=== PATIENT | male | born 1965 | race Caucasian/White ===

== ENCOUNTER 2022-05-18 10:03 | Inpatient (IN) | payer OTHER ==
[2022-05-18 11:58] VITALS: BMI 24.5
[2022-05-18] MEDS ORDERED: BENZOCAINE/MENTHOL (CHLORASEPTIC ) LOZENGE MM PRN (13:17)
[2022-05-18] MEDS ORDERED: ACETAMINOPHEN 325 MG TABLET (FP) PO PRN ×2 (13:17)
[2022-05-18] MEDS ORDERED: DICYCLOMINE HCL 10 MG CAPSULE PO PRN (13:17)
[2022-05-18] MEDS ORDERED: MAGNESIUM CITRATE 300 ML BOTTLE PO PRN (13:17)
[2022-05-18] MEDS ORDERED: NICOTINE 10 MG CARTRIDGE (INHALER) IH PRN (13:17)
[2022-05-18] MEDS ORDERED: IBUPROFEN 600 MG TABLET (FP) PO PRN (13:17)
[2022-05-18] MEDS ORDERED: MAG HYDROX/AL HYDROX/SIMETH 30 ML UNIT-DOSE CUP PO PRN (13:17)
[2022-05-18] MEDS ORDERED: METHOCARBAMOL 500 MG TABLET PO PRN (13:17)
[2022-05-18] MEDS ORDERED: chlordiazePOXIDE HCL 25 MG CAPSULE PO PRN (13:17)
[2022-05-18] MEDS ORDERED: BISMUTH SUBSALICYLATE 524 MG/30 ML PO PRN (13:17)
[2022-05-18] MEDS ORDERED: ONDANSETRON *ODT* 4 MG TABLET SL PRN (13:17)
[2022-05-18] MEDS ORDERED: NICOTINE POLACRILEX 2 MG GUM BUC PRN (13:17)
[2022-05-18] MEDS ORDERED: IBUPROFEN 400 MG TABLET (FP) PO PRN (13:17)
[2022-05-18] MEDS ORDERED: MAGNESIUM HYDROX 2400MG/30ML ORAL SUSPENSION 30 ML CUP PO PRN (13:17)
[2022-05-18] MEDS ORDERED: LOPERAMIDE HCL 2 MG CAPSULE PO PRN (13:17)
[2022-05-18] MEDS: hydrOXYzine PAMOATE 25 MG CAPSULE (FP) PO SCH ×3 (14:00→22:31)
[2022-05-18] MEDS: PRENATAL VITAMINS W/ FOLIC ACID TABLET (FP) PO SCH (14:00)
[2022-05-18] MEDS: chlordiazePOXIDE HCL 25 MG CAPSULE PO SCH ×2 (19:24→22:32)
[2022-05-18] MEDS: MELATONIN 5 MG TABLETS PO SCH (22:31)
[2022-05-18] MEDS: THIAMINE HCL 100 MG TABLET (FP) PO SCH (22:32)
[2022-05-19] MEDS: chlordiazePOXIDE HCL 25 MG CAPSULE PO SCH ×4 (06:03→22:15)
[2022-05-19] MEDS: hydrOXYzine PAMOATE 25 MG CAPSULE (FP) PO SCH ×5 (06:03→22:15)
[2022-05-19] MEDS ORDERED: methaDONE HCL 40 MG DISPERSABLE TABLET PO SCH (10:00)
[2022-05-19 10:19] LABS: HEMOGLOBIN 12.3 GM/dL (11.7-16.9); MCH 32.1 pg (25.7-33.7); MCHC 34.3 g/dl (32.0-35.9); MEAN CELL VOLUME 93.8 fl (80-96); MEAN PLT VOLUME 8.9 fl (7.5-11.1); PLATELET COUNT 227 10^3/uL (134-434); RBC 3.84 M/mm3 (4.00-5.60); RDW 13.7 % (11.9-15.9); WHITE BLOOD COUNT 9.1 K/mm3 (4.0-10.0)
[2022-05-19 10:25] LABS: ALBUMIN 3.5 g/dl (3.4-5.0)
[2022-05-19] MEDS: PRENATAL VITAMINS W/ FOLIC ACID TABLET (FP) PO SCH (10:25)
[2022-05-19 10:26] LABS: BLOOD UREA NITROGEN 23.2 mg/dL (7-18)
[2022-05-19 10:29] LABS: CREATININE 0.8 mg/dL (0.55-1.3)
[2022-05-19 10:30] LABS: BILIRUBIN,TOTAL 0.4 mg/dL (0.2-1)
[2022-05-19 10:31] LABS: TOT PROT 6.6 g/dl (6.4-8.2)
[2022-05-19] MEDS: THIAMINE HCL 100 MG TABLET (FP) PO SCH (22:15)
[2022-05-19] MEDS: MELATONIN 5 MG TABLETS PO SCH (22:15)
[2022-05-20] MEDS: chlordiazePOXIDE HCL 25 MG CAPSULE PO SCH ×4 (05:46→22:45)
[2022-05-20] MEDS: hydrOXYzine PAMOATE 25 MG CAPSULE (FP) PO SCH ×5 (05:46→22:46)
[2022-05-20] MEDS: PRENATAL VITAMINS W/ FOLIC ACID TABLET (FP) PO SCH (10:26)
[2022-05-20] MEDS: THIAMINE HCL 100 MG TABLET (FP) PO SCH (22:46)
[2022-05-20] MEDS: MELATONIN 5 MG TABLETS PO SCH (22:46)
[2022-05-21] MEDS ORDERED: chlordiazePOXIDE HCL 10 MG CAPSULE PO PRN
[2022-05-21] MEDS: chlordiazePOXIDE HCL 10 MG CAPSULE PO SCH ×4 (05:35→22:24)
[2022-05-21] MEDS: hydrOXYzine PAMOATE 25 MG CAPSULE (FP) PO SCH ×5 (05:35→22:25)
[2022-05-21] MEDS: PRENATAL VITAMINS W/ FOLIC ACID TABLET (FP) PO SCH (10:40)
[2022-05-21 18:35] VITALS: RESP 18
[2022-05-21] MEDS: THIAMINE HCL 100 MG TABLET (FP) PO SCH (22:25)
[2022-05-21] MEDS: MELATONIN 5 MG TABLETS PO SCH (22:26)
[2022-05-22] MEDS: chlordiazePOXIDE HCL 10 MG CAPSULE PO SCH ×2 (06:13→17:45)
[2022-05-22] MEDS: hydrOXYzine PAMOATE 25 MG CAPSULE (FP) PO SCH ×5 (06:16→22:32)
[2022-05-22] MEDS: PRENATAL VITAMINS W/ FOLIC ACID TABLET (FP) PO SCH (10:25)
[2022-05-22] MEDS: MELATONIN 5 MG TABLETS PO SCH (22:31)
[2022-05-22] MEDS: THIAMINE HCL 100 MG TABLET (FP) PO SCH (22:32)
[2022-05-23] MEDS ORDERED: chlordiazePOXIDE HCL 10 MG CAPSULE PO ONE (05:00)
[2022-05-23] MEDS: hydrOXYzine PAMOATE 25 MG CAPSULE (FP) PO SCH ×2 (05:18→10:25)
[2022-05-23 09:06] VITALS: BP 102/57; PULSE 74; TEMP 98
[2022-05-23] MEDS: PRENATAL VITAMINS W/ FOLIC ACID TABLET (FP) PO SCH (10:26)
== END 2022-05-23 12:46 | disposition other institution (70) | DRG 773 ==
LOC: YASAS 10:03 → Y3N 13:06
PROVIDERS: ADMIT Allergy & Immunology; ATTEND Surgery
PROC: HZ2ZZZZ Detoxification Services for Substance Abuse Treatment (ICD-10-PCS; principal; 2022-05-18)
DX: F11.23 Opioid dependence with withdrawal (principal); F10.230 Alcohol dependence with withdrawal, uncomplicated; F14.10 Cocaine abuse, uncomplicated; F17.210 Nicotine dependence, cigarettes, uncomplicated; R79.89 Other specified abnormal findings of blood chemistry; Z86.59 Personal history of other mental and behavioral disorders; Z28.310 Unvaccinated for COVID-19; Z28.21 Immunization not carried out because of patient refusal; Z56.0 Unemployment, unspecified; Z59.00 Homelessness unspecified
CPT/HCPCS: 36415; 80053; 85027; 86780; 87811; C9803-CS; U0003; U0005

== ENCOUNTER 2022-05-23 12:50 | Inpatient (IN) | payer OTHER ==
[2022-05-23] MEDS ORDERED: ACETAMINOPHEN 325 MG TABLET (FP) PO PRN (15:24)
[2022-05-23] MEDS ORDERED: P-EPHED 60MG/TRIPROLIDI 2.5MG TABLET PO PRN (15:24)
[2022-05-23] MEDS ORDERED: MAG HYDROX/AL HYDROX/SIMETH 30 ML UNIT-DOSE CUP PO PRN (15:24)
[2022-05-23] MEDS ORDERED: MAGNESIUM HYDROX 2400MG/30ML ORAL SUSPENSION 30 ML CUP PO PRN (15:24)
[2022-05-23] MEDS ORDERED: guaiFENesin 200 MG/10 ML 10 ML UNIT-DOSE CUPS PO PRN (15:24)
[2022-05-23] MEDS ORDERED: MAGNESIUM CITRATE 300 ML BOTTLE PO PRN (15:24)
[2022-05-23] MEDS ORDERED: IBUPROFEN 400 MG TABLET (FP) PO PRN (15:24)
[2022-05-23] MEDS ORDERED: BENZOCAINE/MENTHOL (CHLORASEPTIC ) LOZENGE MM PRN (15:24)
[2022-05-23] MEDS: MELATONIN 5 MG TABLETS PO SCH (21:11)
[2022-05-23] MEDS: THIAMINE HCL 100 MG TABLET (FP) PO SCH (21:11)
[2022-05-24] MEDS ORDERED: methaDONE HCL 40 MG DISPERSABLE TABLET PO SCH (06:00)
[2022-05-24] MEDS: hydrOXYzine PAMOATE 25 MG CAPSULE (FP) PO PRN ×3 (06:22→21:21)
[2022-05-24] MEDS: NICOTINE 7 MG/24 HOURS TOPICAL PATCH TD SCH (10:10)
[2022-05-24] MEDS: PRENATAL VITAMINS W/ FOLIC ACID TABLET (FP) PO SCH (10:10)
[2022-05-24 13:14] LABS: ALBUMIN 3.5 g/dl (3.4-5.0); BLOOD UREA NITROGEN 21.3 mg/dL (7-18); CALCIUM 9.3 mg/dL (8.5-10.1)
[2022-05-24 13:17] LABS: CREATININE 0.8 mg/dL (0.55-1.3)
[2022-05-24 13:19] LABS: BILIRUBIN,TOTAL 0.2 mg/dL (0.2-1); TOT PROT 6.9 g/dl (6.4-8.2)
[2022-05-24 14:12] LABS: HIV INTERPRETATION NEGATIVE (NEGATIVE)
[2022-05-24] MEDS: THIAMINE HCL 100 MG TABLET (FP) PO SCH (21:21)
[2022-05-24] MEDS: MELATONIN 5 MG TABLETS PO SCH (21:21)
[2022-05-25] MEDS: hydrOXYzine PAMOATE 25 MG CAPSULE (FP) PO PRN ×2 (06:35→21:39)
[2022-05-25] MEDS: NICOTINE 7 MG/24 HOURS TOPICAL PATCH TD SCH (10:42)
[2022-05-25] MEDS: PRENATAL VITAMINS W/ FOLIC ACID TABLET (FP) PO SCH (10:42)
[2022-05-25] MEDS: THIAMINE HCL 100 MG TABLET (FP) PO SCH (21:38)
[2022-05-25] MEDS: MELATONIN 5 MG TABLETS PO SCH (21:38)
[2022-05-26] MEDS: hydrOXYzine PAMOATE 25 MG CAPSULE (FP) PO PRN ×3 (06:09→21:49)
[2022-05-26] MEDS: NICOTINE 7 MG/24 HOURS TOPICAL PATCH TD SCH (09:46)
[2022-05-26] MEDS: PRENATAL VITAMINS W/ FOLIC ACID TABLET (FP) PO SCH (09:46)
[2022-05-26] MEDS: MELATONIN 5 MG TABLETS PO SCH (21:48)
[2022-05-26] MEDS: THIAMINE HCL 100 MG TABLET (FP) PO SCH (21:48)
[2022-05-27] MEDS: hydrOXYzine PAMOATE 25 MG CAPSULE (FP) PO PRN ×3 (06:48→21:40)
[2022-05-27] MEDS: PRENATAL VITAMINS W/ FOLIC ACID TABLET (FP) PO SCH (09:57)
[2022-05-27] MEDS: LOPERAMIDE HCL 2 MG CAPSULE PO PRN (09:59)
[2022-05-27] MEDS: NICOTINE 7 MG/24 HOURS TOPICAL PATCH TD SCH (12:29)
[2022-05-27] MEDS: THIAMINE HCL 100 MG TABLET (FP) PO SCH (21:39)
[2022-05-27] MEDS: MELATONIN 5 MG TABLETS PO SCH (21:39)
[2022-05-28] MEDS: LOPERAMIDE HCL 2 MG CAPSULE PO PRN (06:49)
[2022-05-28] MEDS: hydrOXYzine PAMOATE 25 MG CAPSULE (FP) PO PRN ×3 (06:50→21:30)
[2022-05-28] MEDS: PRENATAL VITAMINS W/ FOLIC ACID TABLET (FP) PO SCH (10:41)
[2022-05-28] MEDS: NICOTINE 7 MG/24 HOURS TOPICAL PATCH TD SCH (10:41)
[2022-05-28] MEDS: THIAMINE HCL 100 MG TABLET (FP) PO SCH (21:28)
[2022-05-28] MEDS: MELATONIN 5 MG TABLETS PO SCH (21:29)
[2022-05-29] MEDS: hydrOXYzine PAMOATE 25 MG CAPSULE (FP) PO PRN ×3 (06:33→21:37)
[2022-05-29] MEDS: PRENATAL VITAMINS W/ FOLIC ACID TABLET (FP) PO SCH (10:18)
[2022-05-29] MEDS: NICOTINE 7 MG/24 HOURS TOPICAL PATCH TD SCH (10:18)
[2022-05-29] MEDS: NICOTINE 10 MG CARTRIDGE (INHALER) IH PRN (10:19)
[2022-05-29] MEDS: MELATONIN 5 MG TABLETS PO SCH (21:37)
[2022-05-29] MEDS: THIAMINE HCL 100 MG TABLET (FP) PO SCH (21:37)
[2022-05-30 07:07] VITALS: RESP 18
[2022-05-30] MEDS: hydrOXYzine PAMOATE 25 MG CAPSULE (FP) PO PRN ×2 (10:10→21:53)
[2022-05-30] MEDS: NICOTINE 7 MG/24 HOURS TOPICAL PATCH TD SCH (10:10)
[2022-05-30] MEDS: PRENATAL VITAMINS W/ FOLIC ACID TABLET (FP) PO SCH (10:10)
[2022-05-30] MEDS: THIAMINE HCL 100 MG TABLET (FP) PO SCH (21:52)
[2022-05-30] MEDS: MELATONIN 5 MG TABLETS PO SCH (21:53)
[2022-05-31] MEDS: hydrOXYzine PAMOATE 25 MG CAPSULE (FP) PO PRN ×2 (06:10→21:34)
[2022-05-31] MEDS: NICOTINE 7 MG/24 HOURS TOPICAL PATCH TD SCH (10:43)
[2022-05-31] MEDS: PRENATAL VITAMINS W/ FOLIC ACID TABLET (FP) PO SCH (10:44)
[2022-05-31] MEDS: THIAMINE HCL 100 MG TABLET (FP) PO SCH (21:34)
[2022-05-31] MEDS: QUEtiapine FUMARATE 50 MG TABLET PO SCH (21:34)
[2022-05-31] MEDS: MELATONIN 5 MG TABLETS PO SCH (21:34)
[2022-06-01] MEDS: hydrOXYzine PAMOATE 25 MG CAPSULE (FP) PO PRN (06:53)
[2022-06-01] MEDS: NICOTINE 7 MG/24 HOURS TOPICAL PATCH TD SCH (10:17)
[2022-06-01] MEDS: PRENATAL VITAMINS W/ FOLIC ACID TABLET (FP) PO SCH (10:18)
[2022-06-01] MEDS: MELATONIN 5 MG TABLETS PO SCH (21:12)
[2022-06-01] MEDS: QUEtiapine FUMARATE 50 MG TABLET PO SCH (21:12)
[2022-06-01] MEDS: NICOTINE 10 MG CARTRIDGE (INHALER) IH PRN (21:12)
[2022-06-01] MEDS: THIAMINE HCL 100 MG TABLET (FP) PO SCH (21:12)
[2022-06-02] MEDS: NICOTINE 7 MG/24 HOURS TOPICAL PATCH TD SCH (09:48)
[2022-06-02] MEDS: PRENATAL VITAMINS W/ FOLIC ACID TABLET (FP) PO SCH (09:48)
[2022-06-02] MEDS: hydrOXYzine PAMOATE 25 MG CAPSULE (FP) PO PRN (09:49)
[2022-06-02] MEDS: QUEtiapine FUMARATE 50 MG TABLET PO SCH (21:21)
[2022-06-02] MEDS: THIAMINE HCL 100 MG TABLET (FP) PO SCH (21:21)
[2022-06-02] MEDS: MELATONIN 5 MG TABLETS PO SCH (21:22)
[2022-06-03] MEDS: PRENATAL VITAMINS W/ FOLIC ACID TABLET (FP) PO SCH (10:54)
[2022-06-03] MEDS: NICOTINE 7 MG/24 HOURS TOPICAL PATCH TD SCH (10:54)
[2022-06-03] MEDS: THIAMINE HCL 100 MG TABLET (FP) PO SCH (21:14)
[2022-06-03] MEDS: MELATONIN 5 MG TABLETS PO SCH (21:14)
[2022-06-03] MEDS: QUEtiapine FUMARATE 100 MG TABLET (FP) PO SCH (21:15)
[2022-06-04] MEDS: hydrOXYzine PAMOATE 25 MG CAPSULE (FP) PO PRN ×3 (06:23→21:31)
[2022-06-04] MEDS: PRENATAL VITAMINS W/ FOLIC ACID TABLET (FP) PO SCH (10:27)
[2022-06-04] MEDS: NICOTINE 7 MG/24 HOURS TOPICAL PATCH TD SCH (10:29)
[2022-06-04] MEDS: THIAMINE HCL 100 MG TABLET (FP) PO SCH (21:30)
[2022-06-04] MEDS: MELATONIN 5 MG TABLETS PO SCH (21:30)
[2022-06-04] MEDS: QUEtiapine FUMARATE 100 MG TABLET (FP) PO SCH (21:31)
[2022-06-05] MEDS: hydrOXYzine PAMOATE 25 MG CAPSULE (FP) PO PRN ×2 (06:32→21:25)
[2022-06-05] MEDS: NICOTINE 7 MG/24 HOURS TOPICAL PATCH TD SCH (09:52)
[2022-06-05] MEDS: PRENATAL VITAMINS W/ FOLIC ACID TABLET (FP) PO SCH (09:52)
[2022-06-05] MEDS: MELATONIN 5 MG TABLETS PO SCH (21:25)
[2022-06-05] MEDS: THIAMINE HCL 100 MG TABLET (FP) PO SCH (21:25)
[2022-06-05] MEDS: QUEtiapine FUMARATE 100 MG TABLET (FP) PO SCH (21:26)
[2022-06-06] MEDS: hydrOXYzine PAMOATE 25 MG CAPSULE (FP) PO PRN ×2 (06:16→21:15)
[2022-06-06] MEDS: NICOTINE 7 MG/24 HOURS TOPICAL PATCH TD SCH (10:23)
[2022-06-06] MEDS: PRENATAL VITAMINS W/ FOLIC ACID TABLET (FP) PO SCH (10:23)
[2022-06-06] MEDS: QUEtiapine FUMARATE 100 MG TABLET (FP) PO SCH (21:15)
[2022-06-06] MEDS: MELATONIN 5 MG TABLETS PO SCH (21:15)
[2022-06-06] MEDS: THIAMINE HCL 100 MG TABLET (FP) PO SCH (21:15)
[2022-06-07] MEDS: hydrOXYzine PAMOATE 25 MG CAPSULE (FP) PO PRN ×2 (06:14→21:10)
[2022-06-07] MEDS: NICOTINE 7 MG/24 HOURS TOPICAL PATCH TD SCH (10:24)
[2022-06-07] MEDS: PRENATAL VITAMINS W/ FOLIC ACID TABLET (FP) PO SCH (10:24)
[2022-06-07] MEDS: THIAMINE HCL 100 MG TABLET (FP) PO SCH (21:10)
[2022-06-07] MEDS: QUEtiapine FUMARATE 100 MG TABLET (FP) PO SCH (21:10)
[2022-06-07] MEDS: MELATONIN 5 MG TABLETS PO SCH (21:10)
[2022-06-08] MEDS: hydrOXYzine PAMOATE 25 MG CAPSULE (FP) PO PRN (06:30)
[2022-06-08] MEDS: PRENATAL VITAMINS W/ FOLIC ACID TABLET (FP) PO SCH (10:19)
[2022-06-08] MEDS: NICOTINE 7 MG/24 HOURS TOPICAL PATCH TD SCH (10:19)
[2022-06-08] MEDS: QUEtiapine FUMARATE 100 MG TABLET (FP) PO SCH (21:20)
[2022-06-08] MEDS: THIAMINE HCL 100 MG TABLET (FP) PO SCH (21:20)
[2022-06-08] MEDS: MELATONIN 5 MG TABLETS PO SCH (21:20)
[2022-06-09] MEDS: hydrOXYzine PAMOATE 25 MG CAPSULE (FP) PO PRN (06:32)
[2022-06-09 07:08] VITALS: BP 131/92; PULSE 68; TEMP 97.8
[2022-06-09] MEDS: PRENATAL VITAMINS W/ FOLIC ACID TABLET (FP) PO SCH (09:45)
[2022-06-09] MEDS: NICOTINE 7 MG/24 HOURS TOPICAL PATCH TD SCH (09:46)
== END 2022-06-09 13:50 | disposition home or self-care (01) | DRG 772 ==
LOC: YASAS 12:50 → Y3W 12:51
PROVIDERS: ADMIT Allergy & Immunology; ATTEND Psychiatry & Neurology Pain Medicine
PROC: HZ42ZZZ Group Counseling for Substance Abuse Treatment, Cognitive-Behavioral (ICD-10-PCS; principal; 2022-05-23)
DX: F10.20 Alcohol dependence, uncomplicated (principal); F11.20 Opioid dependence, uncomplicated; F17.210 Nicotine dependence, cigarettes, uncomplicated; F31.9 Bipolar disorder, unspecified; G47.00 Insomnia, unspecified; Z56.0 Unemployment, unspecified; Z59.00 Homelessness unspecified
CPT/HCPCS: 36415; 80053; 87389

== ENCOUNTER 2022-07-28 11:55 | Inpatient (IN) | payer OTHER ==
[2022-07-28 13:03] VITALS: BMI 27.4
[2022-07-28] MEDS ORDERED: NALOXONE HCL (KLOXXADO) 8 MG SPRAY NS PRN (14:47)
[2022-07-28] MEDS ORDERED: MAG HYDROX/AL HYDROX/SIMETH 30 ML UNIT-DOSE CUP PO PRN (14:47)
[2022-07-28] MEDS ORDERED: BISMUTH SUBSALICYLATE 524 MG/30 ML PO PRN (14:47)
[2022-07-28] MEDS ORDERED: DICYCLOMINE HCL 10 MG CAPSULE PO PRN (14:47)
[2022-07-28] MEDS ORDERED: LOPERAMIDE HCL 2 MG CAPSULE PO PRN (14:47)
[2022-07-28] MEDS ORDERED: IBUPROFEN 600 MG TABLET (FP) PO PRN (14:47)
[2022-07-28] MEDS ORDERED: NICOTINE 10 MG CARTRIDGE (INHALER) IH PRN (14:47)
[2022-07-28] MEDS ORDERED: IBUPROFEN 400 MG TABLET (FP) PO PRN (14:47)
[2022-07-28] MEDS ORDERED: ONDANSETRON *ODT* 4 MG TABLET SL PRN (14:47)
[2022-07-28] MEDS ORDERED: MAGNESIUM HYDROX 2400MG/30ML ORAL SUSPENSION 30 ML CUP PO PRN (14:47)
[2022-07-28] MEDS ORDERED: ACETAMINOPHEN 325 MG TABLET (FP) PO PRN ×2 (14:47)
[2022-07-28] MEDS ORDERED: MAGNESIUM CITRATE 300 ML BOTTLE PO PRN (14:47)
[2022-07-28] MEDS ORDERED: BENZOCAINE/MENTHOL (CHLORASEPTIC ) LOZENGE MM PRN (14:47)
[2022-07-28] MEDS: THIAMINE HCL 100 MG TABLET (FP) PO SCH (22:41)
[2022-07-28] MEDS: MELATONIN 5 MG TABLETS PO SCH (22:41)
[2022-07-28] MEDS: hydrOXYzine PAMOATE 25 MG CAPSULE (FP) PO PRN (22:41)
[2022-07-28] MEDS: METHOCARBAMOL 500 MG TABLET PO PRN (22:41)
[2022-07-29] MEDS ORDERED: methaDONE HCL 10 MG TABLET PO SCH (09:15)
[2022-07-29] MEDS ORDERED: chlordiazePOXIDE HCL 25 MG CAPSULE PO PRN (10:20)
[2022-07-29] MEDS: PRENATAL VITAMINS W/ FOLIC ACID TABLET (FP) PO SCH (10:20)
[2022-07-29] MEDS: METHOCARBAMOL 500 MG TABLET PO PRN (10:21)
[2022-07-29] MEDS: chlordiazePOXIDE HCL 25 MG CAPSULE PO SCH ×3 (10:47→22:09)
[2022-07-29 11:59] LABS: HEMATOCRIT 34.5 % (35.4-49); HEMOGLOBIN 11.7 GM/dL (11.7-16.9); MCHC 33.8 g/dl (32.0-35.9); MEAN CELL VOLUME 91.8 fl (80-96); MEAN PLT VOLUME 8.7 fl (7.5-11.1); PLATELET COUNT 256 10^3/uL (134-434); RBC 3.76 M/mm3 (4.00-5.60); RDW 14.2 % (11.9-15.9); WHITE BLOOD COUNT 6.7 K/mm3 (4.0-10.0)
[2022-07-29 12:16] LABS: ALBUMIN 3.1 g/dl (3.4-5.0); BLOOD UREA NITROGEN 18.9 mg/dL (7-18); CALCIUM 8.6 mg/dL (8.5-10.1)
[2022-07-29 12:20] LABS: CREATININE 0.7 mg/dL (0.55-1.3)
[2022-07-29 12:21] LABS: BILIRUBIN,TOTAL 0.4 mg/dL (0.2-1); TOT PROT 5.9 g/dl (6.4-8.2)
[2022-07-29] MEDS: QUEtiapine FUMARATE 50 MG TABLET PO SCH (22:08)
[2022-07-29] MEDS: THIAMINE HCL 100 MG TABLET (FP) PO SCH (22:08)
[2022-07-29] MEDS: MELATONIN 5 MG TABLETS PO SCH (22:09)
[2022-07-30] MEDS: chlordiazePOXIDE HCL 25 MG CAPSULE PO SCH ×4 (05:10→22:20)
[2022-07-30] MEDS: METHOCARBAMOL 500 MG TABLET PO PRN ×2 (05:18→17:54)
[2022-07-30] MEDS: hydrOXYzine PAMOATE 25 MG CAPSULE (FP) PO PRN ×3 (05:18→22:21)
[2022-07-30] MEDS: PRENATAL VITAMINS W/ FOLIC ACID TABLET (FP) PO SCH (10:39)
[2022-07-30] MEDS: QUEtiapine FUMARATE 50 MG TABLET PO SCH (22:21)
[2022-07-30] MEDS: THIAMINE HCL 100 MG TABLET (FP) PO SCH (22:21)
[2022-07-30] MEDS: MELATONIN 5 MG TABLETS PO SCH (22:22)
[2022-07-31] MEDS: chlordiazePOXIDE HCL 25 MG CAPSULE PO SCH ×4 (05:32→22:48)
[2022-07-31] MEDS: hydrOXYzine PAMOATE 25 MG CAPSULE (FP) PO PRN ×3 (05:33→22:08)
[2022-07-31] MEDS: METHOCARBAMOL 500 MG TABLET PO PRN ×2 (05:34→17:40)
[2022-07-31] MEDS: PRENATAL VITAMINS W/ FOLIC ACID TABLET (FP) PO SCH (10:29)
[2022-07-31] MEDS: QUEtiapine FUMARATE 50 MG TABLET PO SCH (22:07)
[2022-07-31] MEDS: THIAMINE HCL 100 MG TABLET (FP) PO SCH (22:07)
[2022-07-31] MEDS: MELATONIN 5 MG TABLETS PO SCH (22:07)
[2022-08-01] MEDS ORDERED: chlordiazePOXIDE HCL 10 MG CAPSULE PO PRN
[2022-08-01] MEDS: chlordiazePOXIDE HCL 10 MG CAPSULE PO SCH ×4 (05:37→22:17)
[2022-08-01] MEDS: METHOCARBAMOL 500 MG TABLET PO PRN ×2 (05:40→17:56)
[2022-08-01] MEDS: PRENATAL VITAMINS W/ FOLIC ACID TABLET (FP) PO SCH (10:04)
[2022-08-01] MEDS: THIAMINE HCL 100 MG TABLET (FP) PO SCH (22:17)
[2022-08-01] MEDS: QUEtiapine FUMARATE 50 MG TABLET PO SCH (22:17)
[2022-08-01] MEDS: MELATONIN 5 MG TABLETS PO SCH (22:17)
[2022-08-01] MEDS: hydrOXYzine PAMOATE 25 MG CAPSULE (FP) PO PRN (22:18)
[2022-08-02] MEDS: METHOCARBAMOL 500 MG TABLET PO PRN ×3 (05:41→22:11)
[2022-08-02] MEDS: chlordiazePOXIDE HCL 10 MG CAPSULE PO SCH ×2 (05:42→18:25)
[2022-08-02] MEDS: PRENATAL VITAMINS W/ FOLIC ACID TABLET (FP) PO SCH (10:37)
[2022-08-02] MEDS: hydrOXYzine PAMOATE 25 MG CAPSULE (FP) PO PRN (18:27)
[2022-08-02] MEDS: THIAMINE HCL 100 MG TABLET (FP) PO SCH (22:11)
[2022-08-02] MEDS: MELATONIN 5 MG TABLETS PO SCH (22:11)
[2022-08-02] MEDS: QUEtiapine FUMARATE 50 MG TABLET PO SCH (22:11)
[2022-08-03] MEDS ORDERED: chlordiazePOXIDE HCL 10 MG CAPSULE PO ONE (05:00)
[2022-08-03 09:47] VITALS: BP 153/88; PULSE 102; RESP 19; TEMP 97.7
[2022-08-03] MEDS: PRENATAL VITAMINS W/ FOLIC ACID TABLET (FP) PO SCH (10:54)
[2022-08-03] MEDS: hydrOXYzine PAMOATE 25 MG CAPSULE (FP) PO PRN (10:55)
== END 2022-08-03 12:38 | disposition other institution (70) | DRG 773 ==
LOC: YASAS 11:55 → Y3N 15:39
PROVIDERS: ADMIT Allergy & Immunology; ATTEND Surgery
PROC: HZ2ZZZZ Detoxification Services for Substance Abuse Treatment (ICD-10-PCS; principal; 2022-07-28)
DX: F10.230 Alcohol dependence with withdrawal, uncomplicated (principal); F11.20 Opioid dependence, uncomplicated; F14.20 Cocaine dependence, uncomplicated; F17.210 Nicotine dependence, cigarettes, uncomplicated; F31.9 Bipolar disorder, unspecified; E46 Unspecified protein-calorie malnutrition; Z68.27 Body mass index [BMI] 27.0-27.9, adult; G47.00 Insomnia, unspecified; Z28.310 Unvaccinated for COVID-19; Z28.9 Immunization not carried out for unspecified reason; Z56.0 Unemployment, unspecified; Z59.00 Homelessness unspecified
CPT/HCPCS: 36415; 80053; 85027; 86780; 93005; 93010; C9803-CS; U0003; U0005

== ENCOUNTER 2022-09-06 13:44 | Inpatient (IN) | payer OTHER ==
[2022-09-06 14:37] VITALS: BMI 26.4
[2022-09-06] MEDS ORDERED: ACETAMINOPHEN 325 MG TABLET (FP) PO PRN ×2 (15:43)
[2022-09-06] MEDS ORDERED: BENZOCAINE/MENTHOL (CHLORASEPTIC ) LOZENGE MM PRN (15:43)
[2022-09-06] MEDS ORDERED: hydrOXYzine PAMOATE 25 MG CAPSULE (FP) PO PRN (15:43)
[2022-09-06] MEDS ORDERED: DICYCLOMINE HCL 10 MG CAPSULE PO PRN (15:43)
[2022-09-06] MEDS ORDERED: POLYETHYLENE GLYCOL (HEALTHYLAX) 3350 17 GM PACKET PO PRN (15:43)
[2022-09-06] MEDS ORDERED: NALOXONE HCL (KLOXXADO) 8 MG SPRAY NS PRN (15:43)
[2022-09-06] MEDS ORDERED: NICOTINE POLACRILEX 2 MG GUM BUC PRN (15:43)
[2022-09-06] MEDS ORDERED: MAGNESIUM HYDROX 2400MG/30ML ORAL SUSPENSION 30 ML CUP PO PRN (15:43)
[2022-09-06] MEDS ORDERED: MAG HYDROX/AL HYDROX/SIMETH 30 ML UNIT-DOSE CUP PO PRN (15:43)
[2022-09-06] MEDS ORDERED: IBUPROFEN 400 MG TABLET (FP) PO PRN (15:43)
[2022-09-06] MEDS ORDERED: BISMUTH SUBSALICYLATE 524 MG/30 ML PO PRN (15:43)
[2022-09-06] MEDS ORDERED: LOPERAMIDE HCL 2 MG CAPSULE PO PRN (15:43)
[2022-09-06] MEDS: chlordiazePOXIDE HCL 25 MG CAPSULE PO PRN (17:13)
[2022-09-06] MEDS: PRENATAL VITAMINS W/ FOLIC ACID TABLET (FP) PO SCH (17:14)
[2022-09-06] MEDS: THIAMINE HCL 100 MG TABLET (FP) PO SCH (22:29)
[2022-09-06] MEDS: chlordiazePOXIDE HCL 25 MG CAPSULE PO SCH (22:29)
[2022-09-06] MEDS: QUEtiapine FUMARATE 50 MG TABLET PO PRN (22:30)
[2022-09-06] MEDS: MELATONIN 5 MG TABLETS PO SCH (22:32)
[2022-09-07] MEDS: chlordiazePOXIDE HCL 25 MG CAPSULE PO SCH ×4 (05:21→22:24)
[2022-09-07] MEDS ORDERED: methaDONE HCL 10 MG TABLET PO SCH (09:00)
[2022-09-07] MEDS: PRENATAL VITAMINS W/ FOLIC ACID TABLET (FP) PO SCH (10:22)
[2022-09-07] MEDS: NICOTINE 7 MG/24 HOURS TOPICAL PATCH TD SCH (10:25)
[2022-09-07 11:47] LABS: CREATININE 0.7 mg/dL (0.55-1.3)
[2022-09-07 11:49] LABS: ALBUMIN 2.9 g/dl (3.4-5.0); BILIRUBIN,TOTAL 0.2 mg/dL (0.2-1); BLOOD UREA NITROGEN 11.7 mg/dL (7-18); TOT PROT 5.9 g/dl (6.4-8.2)
[2022-09-07 11:50] LABS: HEMATOCRIT 31.7 % (35.4-49); HEMOGLOBIN 10.8 GM/dL (11.7-16.9); MCH 30.7 pg (25.7-33.7); MEAN CELL VOLUME 90.3 fl (80-96); MEAN PLT VOLUME 8.2 fl (7.5-11.1); PLATELET COUNT 254 10^3/uL (134-434); RBC 3.52 M/mm3 (4.00-5.60); RDW 14.2 % (11.9-15.9); WHITE BLOOD COUNT 5.3 K/mm3 (4.0-10.0)
[2022-09-07] MEDS: THIAMINE HCL 100 MG TABLET (FP) PO SCH (22:24)
[2022-09-07] MEDS: QUEtiapine FUMARATE 50 MG TABLET PO PRN (22:24)
[2022-09-07] MEDS: MELATONIN 5 MG TABLETS PO SCH (22:24)
[2022-09-08] MEDS: chlordiazePOXIDE HCL 25 MG CAPSULE PO SCH ×4 (05:42→22:37)
[2022-09-08] MEDS: PRENATAL VITAMINS W/ FOLIC ACID TABLET (FP) PO SCH (10:28)
[2022-09-08] MEDS: NICOTINE 7 MG/24 HOURS TOPICAL PATCH TD SCH (10:30)
[2022-09-08] MEDS ORDERED: guaiFENesin 200 MG/10 ML 10 ML UNIT-DOSE CUPS PO PRN (14:04)
[2022-09-08] MEDS: chlordiazePOXIDE HCL 25 MG CAPSULE PO PRN (20:09)
[2022-09-08] MEDS: MELATONIN 5 MG TABLETS PO SCH (22:37)
[2022-09-08] MEDS: QUEtiapine FUMARATE 100 MG TABLET (FP) PO SCH (22:37)
[2022-09-08] MEDS: THIAMINE HCL 100 MG TABLET (FP) PO SCH (22:37)
[2022-09-08] MEDS: METHOCARBAMOL 500 MG TABLET PO PRN (22:40)
[2022-09-09] MEDS: chlordiazePOXIDE HCL 10 MG CAPSULE PO SCH ×4 (05:32→22:34)
[2022-09-09] MEDS: NICOTINE 7 MG/24 HOURS TOPICAL PATCH TD SCH (10:14)
[2022-09-09] MEDS: PRENATAL VITAMINS W/ FOLIC ACID TABLET (FP) PO SCH (10:14)
[2022-09-09] MEDS: METHOCARBAMOL 500 MG TABLET PO PRN ×2 (10:14→16:47)
[2022-09-09] MEDS: chlordiazePOXIDE HCL 10 MG CAPSULE PO PRN ×2 (12:24→19:31)
[2022-09-09] MEDS: THIAMINE HCL 100 MG TABLET (FP) PO SCH (22:33)
[2022-09-09] MEDS: MELATONIN 5 MG TABLETS PO SCH (22:33)
[2022-09-09] MEDS: QUEtiapine FUMARATE 100 MG TABLET (FP) PO SCH (22:33)
[2022-09-10] MEDS: chlordiazePOXIDE HCL 10 MG CAPSULE PO SCH ×2 (05:23→18:20)
[2022-09-10] MEDS: NICOTINE 7 MG/24 HOURS TOPICAL PATCH TD SCH (10:20)
[2022-09-10] MEDS: PRENATAL VITAMINS W/ FOLIC ACID TABLET (FP) PO SCH (10:20)
[2022-09-10] MEDS: METHOCARBAMOL 500 MG TABLET PO PRN ×2 (13:02→20:27)
[2022-09-10] MEDS: MELATONIN 5 MG TABLETS PO SCH (22:23)
[2022-09-10] MEDS: THIAMINE HCL 100 MG TABLET (FP) PO SCH (22:23)
[2022-09-10] MEDS: QUEtiapine FUMARATE 100 MG TABLET (FP) PO SCH (22:23)
[2022-09-11] MEDS ORDERED: chlordiazePOXIDE HCL 10 MG CAPSULE PO ONE (05:00)
[2022-09-11 06:12] VITALS: RESP 18
[2022-09-11 09:10] VITALS: BP 123/71; PULSE 87; TEMP 97.5
[2022-09-11] MEDS: METHOCARBAMOL 500 MG TABLET PO PRN (10:10)
[2022-09-11] MEDS: NICOTINE 7 MG/24 HOURS TOPICAL PATCH TD SCH (10:11)
[2022-09-11] MEDS: PRENATAL VITAMINS W/ FOLIC ACID TABLET (FP) PO SCH (10:11)
== END 2022-09-11 12:40 | disposition other institution (70) | DRG 773 ==
LOC: YASAS 13:44 → Y6N 15:56
PROVIDERS: ADMIT Allergy & Immunology; ATTEND Surgery
PROC: HZ2ZZZZ Detoxification Services for Substance Abuse Treatment (ICD-10-PCS; principal; 2022-09-06)
DX: F10.230 Alcohol dependence with withdrawal, uncomplicated (principal); F11.20 Opioid dependence, uncomplicated; F14.20 Cocaine dependence, uncomplicated; F17.213 Nicotine dependence, cigarettes, with withdrawal; F25.0 Schizoaffective disorder, bipolar type; F39 Unspecified mood [affective] disorder; F19.282 Other psychoactive substance dependence with psychoactive substance-induced sleep disorder; F19.280 Other psychoactive substance dependence with psychoactive substance-induced anxiety disorder; Z28.310 Unvaccinated for COVID-19; Z62.810 Personal history of physical and sexual abuse in childhood; Z56.0 Unemployment, unspecified; Z59.01 Sheltered homelessness
CPT/HCPCS: 36415; 80053; 85027; 87811; 93005; 93010; C9803-CS; U0003; U0005

== ENCOUNTER 2022-09-11 12:51 | Inpatient (IN) | payer OTHER ==
[~2022-09-11 12:51] MED LIST: BENZOCAINE/MENTHOL (CHLORASEPTIC ) LOZENGE MM PRN; LOPERAMIDE HCL 2 MG CAPSULE PO PRN; MAG HYDROX/AL HYDROX/SIMETH 30 ML UNIT-DOSE CUP PO PRN; MAGNESIUM HYDROX 2400MG/30ML ORAL SUSPENSION 30 ML CUP PO PRN; NICOTINE 10 MG CARTRIDGE (INHALER) IH PRN; NICOTINE POLACRILEX 2 MG GUM BUC PRN; P-EPHED 60MG/TRIPROLIDI 2.5MG TABLET PO PRN; POLYETHYLENE GLYCOL (HEALTHYLAX) 3350 17 GM PACKET PO PRN; guaiFENesin 200 MG/10 ML 10 ML UNIT-DOSE CUPS PO PRN
[2022-09-11] MEDS: MELATONIN 5 MG TABLETS PO SCH (21:27)
[2022-09-11] MEDS: QUEtiapine FUMARATE 100 MG TABLET (FP) PO SCH (21:27)
[2022-09-11] MEDS: THIAMINE HCL 100 MG TABLET (FP) PO SCH (21:27)
[2022-09-12] MEDS ORDERED: methaDONE HCL 40 MG DISPERSABLE TABLET PO SCH (06:00)
[2022-09-12] MEDS: PRENATAL VITAMINS W/ FOLIC ACID TABLET (FP) PO SCH (09:42)
[2022-09-12] MEDS: hydrOXYzine PAMOATE 25 MG CAPSULE (FP) PO PRN ×2 (09:42→21:17)
[2022-09-12] MEDS: NICOTINE 7 MG/24 HOURS TOPICAL PATCH TD SCH (09:42)
[2022-09-12] MEDS: MELATONIN 5 MG TABLETS PO SCH (21:16)
[2022-09-12] MEDS: THIAMINE HCL 100 MG TABLET (FP) PO SCH (21:16)
[2022-09-12] MEDS: QUEtiapine FUMARATE 100 MG TABLET (FP) PO SCH (21:16)
[2022-09-13] MEDS: PRENATAL VITAMINS W/ FOLIC ACID TABLET (FP) PO SCH (10:17)
[2022-09-13] MEDS: NICOTINE 7 MG/24 HOURS TOPICAL PATCH TD SCH (10:18)
[2022-09-13] MEDS: MELATONIN 5 MG TABLETS PO SCH (21:14)
[2022-09-13] MEDS: THIAMINE HCL 100 MG TABLET (FP) PO SCH (21:14)
[2022-09-13] MEDS: hydrOXYzine PAMOATE 25 MG CAPSULE (FP) PO PRN (21:15)
[2022-09-13] MEDS: QUEtiapine FUMARATE 200 MG TABLET PO SCH (21:15)
[2022-09-14] MEDS: NICOTINE 7 MG/24 HOURS TOPICAL PATCH TD SCH (10:11)
[2022-09-14] MEDS: PRENATAL VITAMINS W/ FOLIC ACID TABLET (FP) PO SCH (10:11)
[2022-09-14] MEDS: hydrOXYzine PAMOATE 25 MG CAPSULE (FP) PO PRN ×2 (10:12→21:57)
[2022-09-14] MEDS: THIAMINE HCL 100 MG TABLET (FP) PO SCH (21:56)
[2022-09-14] MEDS: MELATONIN 5 MG TABLETS PO SCH (21:56)
[2022-09-14] MEDS: QUEtiapine FUMARATE 200 MG TABLET PO SCH (21:57)
[2022-09-15] MEDS: hydrOXYzine PAMOATE 25 MG CAPSULE (FP) PO PRN ×2 (06:27→21:28)
[2022-09-15] MEDS: NICOTINE 7 MG/24 HOURS TOPICAL PATCH TD SCH (10:08)
[2022-09-15] MEDS: PRENATAL VITAMINS W/ FOLIC ACID TABLET (FP) PO SCH (10:08)
[2022-09-15] MEDS: THIAMINE HCL 100 MG TABLET (FP) PO SCH (21:27)
[2022-09-15] MEDS: QUEtiapine FUMARATE 200 MG TABLET PO SCH (21:27)
[2022-09-15] MEDS: MELATONIN 5 MG TABLETS PO SCH (21:27)
[2022-09-16] MEDS: PRENATAL VITAMINS W/ FOLIC ACID TABLET (FP) PO SCH (09:51)
[2022-09-16] MEDS: NICOTINE 7 MG/24 HOURS TOPICAL PATCH TD SCH (09:51)
[2022-09-16] MEDS: METHOCARBAMOL 500 MG TABLET PO PRN (09:52)
[2022-09-16] MEDS: hydrOXYzine PAMOATE 25 MG CAPSULE (FP) PO PRN ×2 (09:53→21:14)
[2022-09-16] MEDS: QUEtiapine FUMARATE 200 MG TABLET PO SCH (21:15)
[2022-09-16] MEDS: THIAMINE HCL 100 MG TABLET (FP) PO SCH (21:15)
[2022-09-16] MEDS: MELATONIN 5 MG TABLETS PO SCH (21:15)
[2022-09-17] MEDS: hydrOXYzine PAMOATE 25 MG CAPSULE (FP) PO PRN ×2 (06:38→21:19)
[2022-09-17] MEDS: NICOTINE 7 MG/24 HOURS TOPICAL PATCH TD SCH (10:01)
[2022-09-17] MEDS: PRENATAL VITAMINS W/ FOLIC ACID TABLET (FP) PO SCH (10:01)
[2022-09-17] MEDS: METHOCARBAMOL 500 MG TABLET PO PRN ×2 (10:02→21:20)
[2022-09-17] MEDS: THIAMINE HCL 100 MG TABLET (FP) PO SCH (21:18)
[2022-09-17] MEDS: MELATONIN 5 MG TABLETS PO SCH (21:18)
[2022-09-17] MEDS: QUEtiapine FUMARATE 200 MG TABLET PO SCH (21:19)
[2022-09-18] MEDS: hydrOXYzine PAMOATE 25 MG CAPSULE (FP) PO PRN ×2 (06:08→21:05)
[2022-09-18] MEDS: METHOCARBAMOL 500 MG TABLET PO PRN ×2 (10:04→21:05)
[2022-09-18] MEDS: PRENATAL VITAMINS W/ FOLIC ACID TABLET (FP) PO SCH (10:05)
[2022-09-18] MEDS: NICOTINE 7 MG/24 HOURS TOPICAL PATCH TD SCH (10:05)
[2022-09-18] MEDS: MELATONIN 5 MG TABLETS PO SCH (21:05)
[2022-09-18] MEDS: THIAMINE HCL 100 MG TABLET (FP) PO SCH (21:05)
[2022-09-18] MEDS: QUEtiapine FUMARATE 200 MG TABLET PO SCH (21:06)
[2022-09-19] MEDS: hydrOXYzine PAMOATE 25 MG CAPSULE (FP) PO PRN ×2 (06:13→21:16)
[2022-09-19] MEDS: PRENATAL VITAMINS W/ FOLIC ACID TABLET (FP) PO SCH (09:54)
[2022-09-19] MEDS: NICOTINE 7 MG/24 HOURS TOPICAL PATCH TD SCH (09:54)
[2022-09-19] MEDS: METHOCARBAMOL 500 MG TABLET PO PRN ×2 (09:55→21:17)
[2022-09-19] MEDS: QUEtiapine FUMARATE 200 MG TABLET PO SCH (21:15)
[2022-09-19] MEDS: MELATONIN 5 MG TABLETS PO SCH (21:16)
[2022-09-19] MEDS: THIAMINE HCL 100 MG TABLET (FP) PO SCH (21:16)
[2022-09-20] MEDS ORDERED: methaDONE HCL 10 MG TABLET PO SCH (06:00)
[2022-09-20] MEDS: hydrOXYzine PAMOATE 25 MG CAPSULE (FP) PO PRN ×2 (06:14→21:18)
[2022-09-20] MEDS: NICOTINE 7 MG/24 HOURS TOPICAL PATCH TD SCH (09:28)
[2022-09-20] MEDS: PRENATAL VITAMINS W/ FOLIC ACID TABLET (FP) PO SCH (09:28)
[2022-09-20] MEDS: METHOCARBAMOL 500 MG TABLET PO PRN (09:28)
[2022-09-20] MEDS: QUEtiapine FUMARATE 200 MG TABLET PO SCH (21:18)
[2022-09-20] MEDS: THIAMINE HCL 100 MG TABLET (FP) PO SCH (21:18)
[2022-09-20] MEDS: MELATONIN 5 MG TABLETS PO SCH (21:18)
[2022-09-21] MEDS: NICOTINE 7 MG/24 HOURS TOPICAL PATCH TD SCH (09:43)
[2022-09-21] MEDS: PRENATAL VITAMINS W/ FOLIC ACID TABLET (FP) PO SCH (09:43)
[2022-09-21] MEDS: IBUPROFEN 400 MG TABLET (FP) PO PRN (09:44)
[2022-09-21] MEDS: hydrOXYzine PAMOATE 25 MG CAPSULE (FP) PO PRN (21:07)
[2022-09-21] MEDS: MELATONIN 5 MG TABLETS PO SCH (21:08)
[2022-09-21] MEDS: QUEtiapine FUMARATE 200 MG TABLET PO SCH (21:08)
[2022-09-21] MEDS: METHOCARBAMOL 500 MG TABLET PO PRN (21:08)
[2022-09-21] MEDS: THIAMINE HCL 100 MG TABLET (FP) PO SCH (21:08)
[2022-09-22] MEDS: ACETAMINOPHEN 325 MG TABLET (FP) PO PRN (06:06)
[2022-09-22] MEDS: hydrOXYzine PAMOATE 25 MG CAPSULE (FP) PO PRN ×2 (06:06→21:06)
[2022-09-22] MEDS: PRENATAL VITAMINS W/ FOLIC ACID TABLET (FP) PO SCH (09:49)
[2022-09-22] MEDS: NICOTINE 7 MG/24 HOURS TOPICAL PATCH TD SCH (09:49)
[2022-09-22] MEDS: IBUPROFEN 400 MG TABLET (FP) PO PRN (09:50)
[2022-09-22] MEDS: MELATONIN 5 MG TABLETS PO SCH (21:05)
[2022-09-22] MEDS: THIAMINE HCL 100 MG TABLET (FP) PO SCH (21:05)
[2022-09-22] MEDS: METHOCARBAMOL 500 MG TABLET PO PRN (21:06)
[2022-09-22] MEDS: QUEtiapine FUMARATE 200 MG TABLET PO SCH (22:35)
[2022-09-23] MEDS: IBUPROFEN 400 MG TABLET (FP) PO PRN (06:20)
[2022-09-23] MEDS: NICOTINE 7 MG/24 HOURS TOPICAL PATCH TD SCH (09:53)
[2022-09-23] MEDS: PRENATAL VITAMINS W/ FOLIC ACID TABLET (FP) PO SCH (09:53)
[2022-09-23] MEDS: QUEtiapine FUMARATE 200 MG TABLET PO SCH (21:07)
[2022-09-23] MEDS: METHOCARBAMOL 500 MG TABLET PO PRN (21:07)
[2022-09-23] MEDS: MELATONIN 5 MG TABLETS PO SCH (21:07)
[2022-09-23] MEDS: hydrOXYzine PAMOATE 25 MG CAPSULE (FP) PO PRN (21:07)
[2022-09-23] MEDS: THIAMINE HCL 100 MG TABLET (FP) PO SCH (21:08)
[2022-09-24] MEDS: hydrOXYzine PAMOATE 25 MG CAPSULE (FP) PO PRN ×2 (06:08→21:23)
[2022-09-24] MEDS: PRENATAL VITAMINS W/ FOLIC ACID TABLET (FP) PO SCH (09:42)
[2022-09-24] MEDS: NICOTINE 7 MG/24 HOURS TOPICAL PATCH TD SCH (09:42)
[2022-09-24] MEDS: IBUPROFEN 400 MG TABLET (FP) PO PRN ×2 (09:43→21:22)
[2022-09-24] MEDS: METHOCARBAMOL 500 MG TABLET PO PRN ×2 (09:43→21:22)
[2022-09-24] MEDS: QUEtiapine FUMARATE 200 MG TABLET PO SCH (21:21)
[2022-09-24] MEDS: THIAMINE HCL 100 MG TABLET (FP) PO SCH (21:21)
[2022-09-24] MEDS: MELATONIN 5 MG TABLETS PO SCH (21:21)
[2022-09-25] MEDS: ACETAMINOPHEN 325 MG TABLET (FP) PO PRN ×3 (06:17→21:03)
[2022-09-25] MEDS: NICOTINE 7 MG/24 HOURS TOPICAL PATCH TD SCH (09:55)
[2022-09-25] MEDS: PRENATAL VITAMINS W/ FOLIC ACID TABLET (FP) PO SCH (09:55)
[2022-09-25] MEDS: hydrOXYzine PAMOATE 25 MG CAPSULE (FP) PO PRN ×2 (09:57→21:03)
[2022-09-25] MEDS: METHOCARBAMOL 500 MG TABLET PO PRN (09:57)
[2022-09-25] MEDS: IBUPROFEN 400 MG TABLET (FP) PO PRN (16:51)
[2022-09-25] MEDS: THIAMINE HCL 100 MG TABLET (FP) PO SCH (21:03)
[2022-09-25] MEDS: MELATONIN 5 MG TABLETS PO SCH (21:03)
[2022-09-25] MEDS: QUEtiapine FUMARATE 200 MG TABLET PO SCH (21:03)
[2022-09-26] MEDS: IBUPROFEN 400 MG TABLET (FP) PO PRN (05:59)
[2022-09-26] MEDS: hydrOXYzine PAMOATE 25 MG CAPSULE (FP) PO PRN ×2 (05:59→21:19)
[2022-09-26] MEDS: PRENATAL VITAMINS W/ FOLIC ACID TABLET (FP) PO SCH (10:11)
[2022-09-26] MEDS: NICOTINE 7 MG/24 HOURS TOPICAL PATCH TD SCH (10:11)
[2022-09-26] MEDS: METHOCARBAMOL 500 MG TABLET PO PRN ×2 (10:12→21:19)
[2022-09-26] MEDS: QUEtiapine FUMARATE 200 MG TABLET PO SCH (21:19)
[2022-09-26] MEDS: THIAMINE HCL 100 MG TABLET (FP) PO SCH (21:20)
[2022-09-26] MEDS: MELATONIN 5 MG TABLETS PO SCH (21:20)
[2022-09-27] MEDS: hydrOXYzine PAMOATE 25 MG CAPSULE (FP) PO PRN ×2 (06:20→21:25)
[2022-09-27] MEDS: IBUPROFEN 400 MG TABLET (FP) PO PRN (06:21)
[2022-09-27] MEDS: ACETAMINOPHEN 325 MG TABLET (FP) PO PRN ×2 (11:10→21:25)
[2022-09-27] MEDS: NICOTINE 7 MG/24 HOURS TOPICAL PATCH TD SCH (11:11)
[2022-09-27] MEDS: PRENATAL VITAMINS W/ FOLIC ACID TABLET (FP) PO SCH (11:11)
[2022-09-27] MEDS: THIAMINE HCL 100 MG TABLET (FP) PO SCH (21:24)
[2022-09-27] MEDS: MELATONIN 5 MG TABLETS PO SCH (21:24)
[2022-09-27] MEDS: QUEtiapine FUMARATE 200 MG TABLET PO SCH (21:24)
[2022-09-28] MEDS: hydrOXYzine PAMOATE 25 MG CAPSULE (FP) PO PRN ×2 (05:53→21:23)
[2022-09-28] MEDS: IBUPROFEN 400 MG TABLET (FP) PO PRN ×2 (05:53→21:23)
[2022-09-28] MEDS: METHOCARBAMOL 500 MG TABLET PO PRN (10:07)
[2022-09-28] MEDS: NICOTINE 7 MG/24 HOURS TOPICAL PATCH TD SCH (10:07)
[2022-09-28] MEDS: PRENATAL VITAMINS W/ FOLIC ACID TABLET (FP) PO SCH (10:07)
[2022-09-28] MEDS: MELATONIN 5 MG TABLETS PO SCH (21:22)
[2022-09-28] MEDS: THIAMINE HCL 100 MG TABLET (FP) PO SCH (21:23)
[2022-09-28] MEDS: QUEtiapine FUMARATE 200 MG TABLET PO SCH (21:23)
[2022-09-29] MEDS: IBUPROFEN 400 MG TABLET (FP) PO PRN ×2 (06:09→21:42)
[2022-09-29] MEDS: hydrOXYzine PAMOATE 25 MG CAPSULE (FP) PO PRN ×2 (06:09→21:30)
[2022-09-29] MEDS: PRENATAL VITAMINS W/ FOLIC ACID TABLET (FP) PO SCH (10:18)
[2022-09-29] MEDS: NICOTINE 7 MG/24 HOURS TOPICAL PATCH TD SCH (10:18)
[2022-09-29] MEDS: METHOCARBAMOL 500 MG TABLET PO PRN ×2 (10:19→21:41)
[2022-09-29] MEDS: MELATONIN 5 MG TABLETS PO SCH (21:30)
[2022-09-29] MEDS: QUEtiapine FUMARATE 200 MG TABLET PO SCH (21:30)
[2022-09-29] MEDS: THIAMINE HCL 100 MG TABLET (FP) PO SCH (21:30)
[2022-09-30] MEDS: ACETAMINOPHEN 325 MG TABLET (FP) PO PRN (10:24)
[2022-09-30] MEDS: PRENATAL VITAMINS W/ FOLIC ACID TABLET (FP) PO SCH (10:25)
[2022-09-30] MEDS: NICOTINE 7 MG/24 HOURS TOPICAL PATCH TD SCH (10:25)
[2022-09-30] MEDS: hydrOXYzine PAMOATE 25 MG CAPSULE (FP) PO PRN ×2 (10:26→21:31)
[2022-09-30] MEDS: METHOCARBAMOL 500 MG TABLET PO PRN (21:31)
[2022-09-30] MEDS: QUEtiapine FUMARATE 200 MG TABLET PO SCH (21:31)
[2022-09-30] MEDS: MELATONIN 5 MG TABLETS PO SCH (21:32)
[2022-09-30] MEDS: THIAMINE HCL 100 MG TABLET (FP) PO SCH (21:32)
[2022-10-01] MEDS: hydrOXYzine PAMOATE 25 MG CAPSULE (FP) PO PRN ×2 (06:13→21:06)
[2022-10-01] MEDS: IBUPROFEN 400 MG TABLET (FP) PO PRN ×2 (06:13→20:00)
[2022-10-01] MEDS: PRENATAL VITAMINS W/ FOLIC ACID TABLET (FP) PO SCH (09:41)
[2022-10-01] MEDS: ACETAMINOPHEN 325 MG TABLET (FP) PO PRN (09:42)
[2022-10-01] MEDS: NICOTINE 7 MG/24 HOURS TOPICAL PATCH TD SCH (09:42)
[2022-10-01] MEDS: METHOCARBAMOL 500 MG TABLET PO PRN ×2 (09:42→21:06)
[2022-10-01] MEDS: QUEtiapine FUMARATE 200 MG TABLET PO SCH (21:05)
[2022-10-01] MEDS: THIAMINE HCL 100 MG TABLET (FP) PO SCH (21:05)
[2022-10-01] MEDS: MELATONIN 5 MG TABLETS PO SCH (21:05)
[2022-10-02] MEDS: IBUPROFEN 400 MG TABLET (FP) PO PRN (06:33)
[2022-10-02] MEDS: hydrOXYzine PAMOATE 25 MG CAPSULE (FP) PO PRN ×2 (06:33→21:35)
[2022-10-02] MEDS: PRENATAL VITAMINS W/ FOLIC ACID TABLET (FP) PO SCH (09:38)
[2022-10-02] MEDS: NICOTINE 7 MG/24 HOURS TOPICAL PATCH TD SCH (09:38)
[2022-10-02] MEDS: METHOCARBAMOL 500 MG TABLET PO PRN ×2 (09:39→21:35)
[2022-10-02] MEDS: ACETAMINOPHEN 325 MG TABLET (FP) PO PRN (09:40)
[2022-10-02] MEDS: QUEtiapine FUMARATE 200 MG TABLET PO SCH (21:35)
[2022-10-02] MEDS: MELATONIN 5 MG TABLETS PO SCH (21:35)
[2022-10-02] MEDS: THIAMINE HCL 100 MG TABLET (FP) PO SCH (21:35)
[2022-10-03] MEDS: hydrOXYzine PAMOATE 25 MG CAPSULE (FP) PO PRN ×2 (06:09→21:45)
[2022-10-03] MEDS: IBUPROFEN 400 MG TABLET (FP) PO PRN (06:09)
[2022-10-03] MEDS: METHOCARBAMOL 500 MG TABLET PO PRN ×2 (09:35→21:44)
[2022-10-03] MEDS: NICOTINE 7 MG/24 HOURS TOPICAL PATCH TD SCH (09:35)
[2022-10-03] MEDS: PRENATAL VITAMINS W/ FOLIC ACID TABLET (FP) PO SCH (09:35)
[2022-10-03] MEDS: QUEtiapine FUMARATE 200 MG TABLET PO SCH (21:45)
[2022-10-03] MEDS: MELATONIN 5 MG TABLETS PO SCH (21:45)
[2022-10-03] MEDS: THIAMINE HCL 100 MG TABLET (FP) PO SCH (21:45)
[2022-10-04] MEDS: IBUPROFEN 400 MG TABLET (FP) PO PRN (06:15)
[2022-10-04] MEDS: hydrOXYzine PAMOATE 25 MG CAPSULE (FP) PO PRN (06:16)
[2022-10-04 06:51] VITALS: BP 114/70; PULSE 85; RESP 18; TEMP 97.5
[2022-10-04] MEDS: METHOCARBAMOL 500 MG TABLET PO PRN (09:47)
[2022-10-04] MEDS: NICOTINE 7 MG/24 HOURS TOPICAL PATCH TD SCH (09:47)
[2022-10-04] MEDS: PRENATAL VITAMINS W/ FOLIC ACID TABLET (FP) PO SCH (09:47)
== END 2022-10-04 16:05 | disposition home or self-care (01) | DRG 772 ==
LOC: YASAS 12:51 → Y3W 12:53
PROVIDERS: ADMIT Allergy & Immunology; ATTEND Psychiatry & Neurology Pain Medicine
PROC: HZ42ZZZ Group Counseling for Substance Abuse Treatment, Cognitive-Behavioral (ICD-10-PCS; principal; 2022-09-21)
DX: F11.20 Opioid dependence, uncomplicated (principal); F10.20 Alcohol dependence, uncomplicated; F14.20 Cocaine dependence, uncomplicated; F17.210 Nicotine dependence, cigarettes, uncomplicated; F25.0 Schizoaffective disorder, bipolar type; Z59.01 Sheltered homelessness
CPT/HCPCS: 36415; 86803; C9803-CS; U0003; U0005

== ENCOUNTER 2022-11-26 09:50 | Inpatient (IN) | payer OTHER ==
[2022-11-26 10:39] VITALS: BMI 26.6
[2022-11-26] MEDS ORDERED: NICOTINE 21 MG/24 HOURS TOPICAL PATCH TD PRN (11:59)
[2022-11-26] MEDS ORDERED: POLYETHYLENE GLYCOL (HEALTHYLAX) 3350 17 GM PACKET PO PRN (11:59)
[2022-11-26] MEDS ORDERED: LOPERAMIDE HCL 2 MG CAPSULE PO PRN (11:59)
[2022-11-26] MEDS ORDERED: NICOTINE 10 MG CARTRIDGE (INHALER) IH PRN (11:59)
[2022-11-26] MEDS ORDERED: BENZOCAINE/MENTHOL (CHLORASEPTIC ) LOZENGE MM PRN (11:59)
[2022-11-26] MEDS ORDERED: hydrOXYzine PAMOATE 25 MG CAPSULE (FP) PO PRN (11:59)
[2022-11-26] MEDS ORDERED: MAGNESIUM HYDROX 2400MG/30ML ORAL SUSPENSION 30 ML CUP PO PRN (11:59)
[2022-11-26] MEDS ORDERED: P-EPHED 60MG/TRIPROLIDI 2.5MG TABLET PO PRN (11:59)
[2022-11-26] MEDS ORDERED: guaiFENesin 200 MG/10 ML 10 ML UNIT-DOSE CUPS PO PRN (11:59)
[2022-11-26] MEDS: BACITRACIN 3.5 GM OPTHALMIC OINT TUBE OS SCH (14:44)
[2022-11-26] MEDS: THIAMINE HCL 100 MG TABLET (FP) PO SCH (22:00)
[2022-11-26] MEDS: MELATONIN 5 MG TABLETS PO SCH (22:00)
[2022-11-26] MEDS: ACETAMINOPHEN 325 MG TABLET (FP) PO PRN (22:01)
[2022-11-26] MEDS: BACITRACIN/POLYMYXIN OPH OINT 3.5 GM TUBE OS SCH ×2 (22:15→23:47)
[2022-11-27] MEDS: BACITRACIN 3.5 GM OPTHALMIC OINT TUBE OS SCH (00:44)
[2022-11-27] MEDS: BACITRACIN/POLYMYXIN OPH OINT 3.5 GM TUBE OS SCH ×5 (03:34→21:37)
[2022-11-27] MEDS ORDERED: methaDONE HCL 10 MG TABLET PO SCH (06:00)
[2022-11-27] MEDS: ACETAMINOPHEN 325 MG TABLET (FP) PO PRN (07:05)
[2022-11-27] MEDS: PRENATAL VITAMINS W/ FOLIC ACID TABLET (FP) PO SCH (09:32)
[2022-11-27 10:24] LABS: PH,URINE 8.5 (5.0-8.0); URINE APPEARANCE CLOUDY; URINE BILIRUBIN NEGATIVE (NEGATIVE); URINE COLOR YELLOW; URINE GLUCOSE (UA) NEGATIVE (NEGATIVE); URINE KETONE NEGATIVE (NEGATIVE); URINE LEUK ESTERASE NEGATIVE (NEGATIVE); URINE NITRITE NEGATIVE (NEGATIVE); URINE PROTEIN NEGATIVE (NEGATIVE); URINE UROBILINOGEN 0.2 mg/dL (0.2-1.0)
[2022-11-27] MEDS: THIAMINE HCL 100 MG TABLET (FP) PO SCH (21:36)
[2022-11-27] MEDS: hydrOXYzine PAMOATE 25 MG CAPSULE (FP) PO PRN (21:36)
[2022-11-27] MEDS: MELATONIN 5 MG TABLETS PO SCH (21:36)
[2022-11-27] MEDS: QUEtiapine FUMARATE 50 MG TABLET PO PRN (21:38)
[2022-11-27] MEDS ORDERED: QUEtiapine FUMARATE 50 MG TABLET PO SCH (22:00)
[2022-11-28] MEDS: PRENATAL VITAMINS W/ FOLIC ACID TABLET (FP) PO SCH (10:02)
[2022-11-28] MEDS: IBUPROFEN 400 MG TABLET (FP) PO PRN (10:02)
[2022-11-28] MEDS: BACITRACIN/POLYMYXIN OPH OINT 3.5 GM TUBE OS SCH ×4 (10:04→21:56)
[2022-11-28] MEDS ORDERED: cloNIDine HCL 0.1 MG TABLET PO PRN (12:42)
[2022-11-28 12:44] LABS: HEMATOCRIT 36.5 % (35.4-49); HEMOGLOBIN 12.2 GM/dL (11.7-16.9); MCH 29.7 pg (25.7-33.7); MCHC 33.6 g/dl (32.0-35.9); MEAN CELL VOLUME 88.6 fl (80-96); PLATELET COUNT 322 10^3/uL (134-434); RBC 4.12 M/mm3 (4.00-5.60); RDW 14.9 % (11.9-15.9); WHITE BLOOD COUNT 7.7 K/mm3 (4.0-10.0)
[2022-11-28 13:11] LABS: SYPHILIS W/ RPR CONF NON-REACTIVE (NONREACTIVE)
[2022-11-28] MEDS: BACITRACIN 0.9 GM PACKET TP SCH ×2 (13:30→21:56)
[2022-11-28 13:39] LABS: ALBUMIN 3.4 g/dl (3.4-5.0); BILIRUBIN,TOTAL 0.2 mg/dL (0.2-1); BLOOD UREA NITROGEN 20.4 mg/dL (7-18); CALCIUM 9.2 mg/dL (8.5-10.1); CREATININE 0.8 mg/dL (0.55-1.3); POTASSIUM 4.3 mmol/L (3.5-5.1); TOT PROT 6.8 g/dl (6.4-8.2)
[2022-11-28] MEDS: THIAMINE HCL 100 MG TABLET (FP) PO SCH (21:56)
[2022-11-28] MEDS: MELATONIN 5 MG TABLETS PO SCH (21:56)
[2022-11-28] MEDS: ACETAMINOPHEN 325 MG TABLET (FP) PO PRN (21:57)
[2022-11-28] MEDS: QUEtiapine FUMARATE 50 MG TABLET PO PRN (22:04)
[2022-11-29] MEDS: BACITRACIN 0.9 GM PACKET TP SCH ×2 (09:54→21:52)
[2022-11-29] MEDS: IBUPROFEN 400 MG TABLET (FP) PO PRN ×2 (09:54→21:53)
[2022-11-29] MEDS: BACITRACIN/POLYMYXIN OPH OINT 3.5 GM TUBE OS SCH ×4 (09:55→21:53)
[2022-11-29] MEDS: PRENATAL VITAMINS W/ FOLIC ACID TABLET (FP) PO SCH (09:55)
[2022-11-29] MEDS: QUEtiapine FUMARATE 50 MG TABLET PO PRN (21:52)
[2022-11-29] MEDS: THIAMINE HCL 100 MG TABLET (FP) PO SCH (21:52)
[2022-11-29] MEDS: MELATONIN 5 MG TABLETS PO SCH (21:52)
[2022-11-30] MEDS: PRENATAL VITAMINS W/ FOLIC ACID TABLET (FP) PO SCH (10:08)
[2022-11-30] MEDS: BACITRACIN 0.9 GM PACKET TP SCH ×2 (10:08→21:38)
[2022-11-30] MEDS: BACITRACIN/POLYMYXIN OPH OINT 3.5 GM TUBE OS SCH ×4 (10:09→21:40)
[2022-11-30] MEDS: IBUPROFEN 400 MG TABLET (FP) PO PRN ×2 (10:09→21:37)
[2022-11-30] MEDS: DOXYCYCLINE HYCLATE 100 MG TABLET PO SCH (17:28)
[2022-11-30] MEDS: MELATONIN 5 MG TABLETS PO SCH (21:36)
[2022-11-30] MEDS: THIAMINE HCL 100 MG TABLET (FP) PO SCH (21:36)
[2022-11-30] MEDS: hydrOXYzine PAMOATE 25 MG CAPSULE (FP) PO PRN (21:36)
[2022-11-30] MEDS: QUEtiapine FUMARATE 50 MG TABLET PO PRN (21:37)
[2022-11-30] MEDS ORDERED: BACITRACIN ZINC 15 GM TUBE TOPICAL OINTMENT TP SCH (22:00)
[2022-12-01] MEDS: IBUPROFEN 400 MG TABLET (FP) PO PRN ×2 (10:08→16:48)
[2022-12-01] MEDS: PRENATAL VITAMINS W/ FOLIC ACID TABLET (FP) PO SCH (10:08)
[2022-12-01] MEDS: BACITRACIN/POLYMYXIN OPH OINT 3.5 GM TUBE OS SCH ×4 (10:09→21:48)
[2022-12-01] MEDS: BACITRACIN 0.9 GM PACKET TP SCH ×2 (10:09→21:48)
[2022-12-01] MEDS: DOXYCYCLINE HYCLATE 100 MG TABLET PO SCH ×2 (10:09→17:15)
[2022-12-01] MEDS: hydrOXYzine PAMOATE 25 MG CAPSULE (FP) PO PRN (21:30)
[2022-12-01] MEDS: MELATONIN 5 MG TABLETS PO SCH (21:30)
[2022-12-01] MEDS: THIAMINE HCL 100 MG TABLET (FP) PO SCH (21:30)
[2022-12-01] MEDS: QUEtiapine FUMARATE 50 MG TABLET PO PRN (21:31)
[2022-12-02] MEDS: PRENATAL VITAMINS W/ FOLIC ACID TABLET (FP) PO SCH (09:49)
[2022-12-02] MEDS: DOXYCYCLINE HYCLATE 100 MG TABLET PO SCH ×2 (09:49→17:14)
[2022-12-02] MEDS: BACITRACIN/POLYMYXIN OPH OINT 3.5 GM TUBE OS SCH ×4 (09:50→21:30)
[2022-12-02] MEDS: BACITRACIN 0.9 GM PACKET TP SCH ×2 (09:50→21:28)
[2022-12-02] MEDS: IBUPROFEN 400 MG TABLET (FP) PO PRN ×2 (09:50→17:08)
[2022-12-02] MEDS: LIDOCAINE 5% TOPICAL PATCH TP SCH (13:54)
[2022-12-02] MEDS: LIDOCAINE PATCH REMOVAL MC SCH (21:25)
[2022-12-02] MEDS: MELATONIN 5 MG TABLETS PO SCH (21:25)
[2022-12-02] MEDS: ACETAMINOPHEN 325 MG TABLET (FP) PO PRN (21:27)
[2022-12-02] MEDS: QUEtiapine FUMARATE 50 MG TABLET PO PRN (21:27)
[2022-12-02] MEDS: hydrOXYzine PAMOATE 25 MG CAPSULE (FP) PO PRN (21:27)
[2022-12-02] MEDS: THIAMINE HCL 100 MG TABLET (FP) PO SCH (21:29)
[2022-12-02] MEDS: METHYL SALICYLATE/MENTHOL OINT 30 GM TUBE TP SCH (21:31)
[2022-12-03] MEDS: IBUPROFEN 400 MG TABLET (FP) PO PRN ×3 (06:10→21:42)
[2022-12-03] MEDS: BACITRACIN 0.9 GM PACKET TP SCH ×5 (10:22→21:43)
[2022-12-03] MEDS: DOXYCYCLINE HYCLATE 100 MG TABLET PO SCH ×2 (10:22→17:30)
[2022-12-03] MEDS: PRENATAL VITAMINS W/ FOLIC ACID TABLET (FP) PO SCH (10:22)
[2022-12-03] MEDS: BACITRACIN/POLYMYXIN OPH OINT 3.5 GM TUBE OS SCH ×2 (10:23→14:09)
[2022-12-03] MEDS: LIDOCAINE 5% TOPICAL PATCH TP SCH (10:23)
[2022-12-03] MEDS: BACITRACIN/POLYMYXIN OPH OINT 3.5 GM TUBE OD SCH ×2 (18:32→21:44)
[2022-12-03] MEDS: QUEtiapine FUMARATE 50 MG TABLET PO PRN (21:41)
[2022-12-03] MEDS: THIAMINE HCL 100 MG TABLET (FP) PO SCH (21:41)
[2022-12-03] MEDS: METHYL SALICYLATE/MENTHOL OINT 30 GM TUBE TP SCH (21:43)
[2022-12-03] MEDS: LIDOCAINE PATCH REMOVAL MC SCH (21:43)
[2022-12-03] MEDS: MELATONIN 5 MG TABLETS PO SCH (21:43)
[2022-12-04] MEDS: ACETAMINOPHEN 325 MG TABLET (FP) PO PRN ×2 (07:47→21:35)
[2022-12-04] MEDS: DOXYCYCLINE HYCLATE 100 MG TABLET PO SCH ×2 (10:05→17:46)
[2022-12-04] MEDS: PRENATAL VITAMINS W/ FOLIC ACID TABLET (FP) PO SCH (10:05)
[2022-12-04] MEDS: BACITRACIN 0.9 GM PACKET TP SCH ×3 (10:06→21:36)
[2022-12-04] MEDS: LIDOCAINE 5% TOPICAL PATCH TP SCH (10:06)
[2022-12-04] MEDS: IBUPROFEN 400 MG TABLET (FP) PO PRN ×2 (10:08→17:46)
[2022-12-04] MEDS: BACITRACIN/POLYMYXIN OPH OINT 3.5 GM TUBE OD SCH ×4 (10:10→21:37)
[2022-12-04] MEDS: LIDOCAINE PATCH REMOVAL MC SCH (21:34)
[2022-12-04] MEDS: MELATONIN 5 MG TABLETS PO SCH (21:34)
[2022-12-04] MEDS: QUEtiapine FUMARATE 50 MG TABLET PO PRN (21:34)
[2022-12-04] MEDS: METHYL SALICYLATE/MENTHOL OINT 30 GM TUBE TP SCH (21:34)
[2022-12-04] MEDS: THIAMINE HCL 100 MG TABLET (FP) PO SCH (21:34)
[2022-12-05] MEDS: ACETAMINOPHEN 325 MG TABLET (FP) PO PRN ×2 (06:22→10:11)
[2022-12-05] MEDS: BACITRACIN 0.9 GM PACKET TP SCH ×2 (10:10→21:46)
[2022-12-05] MEDS: PRENATAL VITAMINS W/ FOLIC ACID TABLET (FP) PO SCH (10:10)
[2022-12-05] MEDS: DOXYCYCLINE HYCLATE 100 MG TABLET PO SCH ×2 (10:10→17:52)
[2022-12-05] MEDS: LIDOCAINE 5% TOPICAL PATCH TP SCH (10:10)
[2022-12-05] MEDS: BACITRACIN/POLYMYXIN OPH OINT 3.5 GM TUBE OD SCH ×4 (10:10→21:47)
[2022-12-05] MEDS: IBUPROFEN 400 MG TABLET (FP) PO PRN ×2 (14:36→21:43)
[2022-12-05] MEDS: QUEtiapine FUMARATE 50 MG TABLET PO PRN (21:43)
[2022-12-05] MEDS: MELATONIN 5 MG TABLETS PO SCH (21:43)
[2022-12-05] MEDS: THIAMINE HCL 100 MG TABLET (FP) PO SCH (21:43)
[2022-12-05] MEDS: METHYL SALICYLATE/MENTHOL OINT 30 GM TUBE TP SCH (21:47)
[2022-12-05] MEDS: LIDOCAINE PATCH REMOVAL MC SCH (21:47)
[2022-12-06] MEDS: ACETAMINOPHEN 325 MG TABLET (FP) PO PRN ×2 (06:32→14:22)
[2022-12-06] MEDS: BACITRACIN/POLYMYXIN OPH OINT 3.5 GM TUBE OD SCH ×4 (09:57→21:48)
[2022-12-06] MEDS: PRENATAL VITAMINS W/ FOLIC ACID TABLET (FP) PO SCH (09:58)
[2022-12-06] MEDS: DOXYCYCLINE HYCLATE 100 MG TABLET PO SCH ×2 (09:58→17:00)
[2022-12-06] MEDS: BACITRACIN 0.9 GM PACKET TP SCH ×2 (09:58→21:47)
[2022-12-06] MEDS: LIDOCAINE 5% TOPICAL PATCH TP SCH (09:58)
[2022-12-06] MEDS: IBUPROFEN 400 MG TABLET (FP) PO PRN ×2 (09:58→18:24)
[2022-12-06] MEDS: METHYL SALICYLATE/MENTHOL OINT 30 GM TUBE TP SCH (21:47)
[2022-12-06] MEDS: MELATONIN 5 MG TABLETS PO SCH (21:47)
[2022-12-06] MEDS: LIDOCAINE PATCH REMOVAL MC SCH (21:47)
[2022-12-06] MEDS: QUEtiapine FUMARATE 50 MG TABLET PO PRN (21:47)
[2022-12-06] MEDS: THIAMINE HCL 100 MG TABLET (FP) PO SCH (21:47)
[2022-12-07] MEDS: ACETAMINOPHEN 325 MG TABLET (FP) PO PRN ×2 (06:27→14:31)
[2022-12-07] MEDS: BACITRACIN 0.9 GM PACKET TP SCH ×2 (10:18→21:28)
[2022-12-07] MEDS: BACITRACIN/POLYMYXIN OPH OINT 3.5 GM TUBE OD SCH ×4 (10:19→21:29)
[2022-12-07] MEDS: LIDOCAINE 5% TOPICAL PATCH TP SCH (10:19)
[2022-12-07] MEDS: DOXYCYCLINE HYCLATE 100 MG TABLET PO SCH (10:19)
[2022-12-07] MEDS: PRENATAL VITAMINS W/ FOLIC ACID TABLET (FP) PO SCH (10:19)
[2022-12-07] MEDS: IBUPROFEN 400 MG TABLET (FP) PO PRN ×2 (10:20→21:27)
[2022-12-07] MEDS: QUEtiapine FUMARATE 50 MG TABLET PO PRN (21:27)
[2022-12-07] MEDS: MELATONIN 5 MG TABLETS PO SCH (21:27)
[2022-12-07] MEDS: LIDOCAINE PATCH REMOVAL MC SCH (21:28)
[2022-12-07] MEDS: METHYL SALICYLATE/MENTHOL OINT 30 GM TUBE TP SCH (21:28)
[2022-12-07] MEDS: THIAMINE HCL 100 MG TABLET (FP) PO SCH (21:28)
[2022-12-08] MEDS: ACETAMINOPHEN 325 MG TABLET (FP) PO PRN (05:54)
[2022-12-08] MEDS: PRENATAL VITAMINS W/ FOLIC ACID TABLET (FP) PO SCH (10:32)
[2022-12-08] MEDS: LIDOCAINE 5% TOPICAL PATCH TP SCH (10:32)
[2022-12-08] MEDS: BACITRACIN/POLYMYXIN OPH OINT 3.5 GM TUBE OD SCH ×2 (10:32→15:57)
[2022-12-08] MEDS: BACITRACIN 0.9 GM PACKET TP SCH ×2 (10:32→22:07)
[2022-12-08] MEDS: IBUPROFEN 400 MG TABLET (FP) PO PRN ×2 (10:35→22:07)
[2022-12-08] MEDS: LIDOCAINE PATCH REMOVAL MC SCH (22:04)
[2022-12-08] MEDS: MELATONIN 5 MG TABLETS PO SCH (22:04)
[2022-12-08] MEDS: METHYL SALICYLATE/MENTHOL OINT 30 GM TUBE TP SCH (22:04)
[2022-12-08] MEDS: THIAMINE HCL 100 MG TABLET (FP) PO SCH (22:07)
[2022-12-08] MEDS: BACLOFEN 10 MG TABLET (FP) PO PRN (22:07)
[2022-12-08] MEDS: QUEtiapine FUMARATE 50 MG TABLET PO PRN (22:13)
[2022-12-09] MEDS: IBUPROFEN 400 MG TABLET (FP) PO PRN ×2 (06:58→21:35)
[2022-12-09] MEDS: BACLOFEN 10 MG TABLET (FP) PO PRN ×2 (10:05→19:08)
[2022-12-09] MEDS: BACITRACIN 0.9 GM PACKET TP SCH ×2 (10:05→21:36)
[2022-12-09] MEDS: LIDOCAINE 5% TOPICAL PATCH TP SCH (10:05)
[2022-12-09] MEDS: PRENATAL VITAMINS W/ FOLIC ACID TABLET (FP) PO SCH (10:05)
[2022-12-09] MEDS: ACETAMINOPHEN 325 MG TABLET (FP) PO PRN ×2 (10:05→19:08)
[2022-12-09] MEDS: MELATONIN 5 MG TABLETS PO SCH (21:34)
[2022-12-09] MEDS: THIAMINE HCL 100 MG TABLET (FP) PO SCH (21:35)
[2022-12-09] MEDS: hydrOXYzine PAMOATE 25 MG CAPSULE (FP) PO PRN (21:35)
[2022-12-09] MEDS: QUEtiapine FUMARATE 50 MG TABLET PO PRN (21:35)
[2022-12-09] MEDS: LIDOCAINE PATCH REMOVAL MC SCH (21:36)
[2022-12-09] MEDS: METHYL SALICYLATE/MENTHOL OINT 30 GM TUBE TP SCH (21:36)
[2022-12-10] MEDS: ACETAMINOPHEN 325 MG TABLET (FP) PO PRN (06:27)
[2022-12-10] MEDS: PRENATAL VITAMINS W/ FOLIC ACID TABLET (FP) PO SCH (10:26)
[2022-12-10] MEDS: BACITRACIN 0.9 GM PACKET TP SCH ×2 (10:27→21:55)
[2022-12-10] MEDS: LIDOCAINE 5% TOPICAL PATCH TP SCH (10:27)
[2022-12-10] MEDS: IBUPROFEN 400 MG TABLET (FP) PO PRN ×2 (10:27→21:33)
[2022-12-10] MEDS: BACLOFEN 10 MG TABLET (FP) PO PRN ×2 (10:29→21:33)
[2022-12-10] MEDS: QUEtiapine FUMARATE 50 MG TABLET PO PRN (21:33)
[2022-12-10] MEDS: hydrOXYzine PAMOATE 25 MG CAPSULE (FP) PO PRN (21:34)
[2022-12-10] MEDS: THIAMINE HCL 100 MG TABLET (FP) PO SCH (21:34)
[2022-12-10] MEDS: MELATONIN 5 MG TABLETS PO SCH (21:34)
[2022-12-10] MEDS: LIDOCAINE PATCH REMOVAL MC SCH (21:55)
[2022-12-10] MEDS: METHYL SALICYLATE/MENTHOL OINT 30 GM TUBE TP SCH (21:55)
[2022-12-11] MEDS: PRENATAL VITAMINS W/ FOLIC ACID TABLET (FP) PO SCH (10:58)
[2022-12-11] MEDS: BACITRACIN 0.9 GM PACKET TP SCH ×2 (10:58→21:53)
[2022-12-11] MEDS: LIDOCAINE 5% TOPICAL PATCH TP SCH (10:59)
[2022-12-11] MEDS: IBUPROFEN 400 MG TABLET (FP) PO PRN ×2 (11:00→21:52)
[2022-12-11] MEDS: THIAMINE HCL 100 MG TABLET (FP) PO SCH (21:52)
[2022-12-11] MEDS: METHYL SALICYLATE/MENTHOL OINT 30 GM TUBE TP SCH (21:53)
[2022-12-11] MEDS: MELATONIN 5 MG TABLETS PO SCH (21:53)
[2022-12-11] MEDS: BACLOFEN 10 MG TABLET (FP) PO PRN (21:53)
[2022-12-11] MEDS: LIDOCAINE PATCH REMOVAL MC SCH (21:53)
[2022-12-11] MEDS: QUEtiapine FUMARATE 50 MG TABLET PO PRN (21:54)
[2022-12-12] MEDS: BACLOFEN 10 MG TABLET (FP) PO PRN ×2 (10:34→21:37)
[2022-12-12] MEDS: IBUPROFEN 400 MG TABLET (FP) PO PRN ×2 (10:34→21:37)
[2022-12-12] MEDS: LIDOCAINE 5% TOPICAL PATCH TP SCH (10:34)
[2022-12-12] MEDS: BACITRACIN 0.9 GM PACKET TP SCH ×2 (10:34→23:16)
[2022-12-12] MEDS: PRENATAL VITAMINS W/ FOLIC ACID TABLET (FP) PO SCH (10:34)
[2022-12-12] MEDS: QUEtiapine FUMARATE 50 MG TABLET PO PRN (21:37)
[2022-12-12] MEDS: MELATONIN 5 MG TABLETS PO SCH (21:37)
[2022-12-12] MEDS: THIAMINE HCL 100 MG TABLET (FP) PO SCH (21:37)
[2022-12-12] MEDS: METHYL SALICYLATE/MENTHOL OINT 30 GM TUBE TP SCH (23:17)
[2022-12-12] MEDS: LIDOCAINE PATCH REMOVAL MC SCH (23:17)
[2022-12-13] MEDS: BACITRACIN 0.9 GM PACKET TP SCH ×2 (10:01→21:36)
[2022-12-13] MEDS: LIDOCAINE 5% TOPICAL PATCH TP SCH (10:01)
[2022-12-13] MEDS: PRENATAL VITAMINS W/ FOLIC ACID TABLET (FP) PO SCH (10:01)
[2022-12-13] MEDS: BACLOFEN 10 MG TABLET (FP) PO PRN ×2 (10:03→21:36)
[2022-12-13] MEDS: IBUPROFEN 400 MG TABLET (FP) PO PRN ×2 (10:03→21:37)
[2022-12-13] MEDS: MELATONIN 5 MG TABLETS PO SCH (21:36)
[2022-12-13] MEDS: THIAMINE HCL 100 MG TABLET (FP) PO SCH (21:36)
[2022-12-13] MEDS: LIDOCAINE PATCH REMOVAL MC SCH (21:36)
[2022-12-13] MEDS: QUEtiapine FUMARATE 50 MG TABLET PO PRN (21:36)
[2022-12-13] MEDS: METHYL SALICYLATE/MENTHOL OINT 30 GM TUBE TP SCH (21:38)
[2022-12-14] MEDS: IBUPROFEN 400 MG TABLET (FP) PO PRN ×2 (06:08→21:37)
[2022-12-14] MEDS: PRENATAL VITAMINS W/ FOLIC ACID TABLET (FP) PO SCH (10:20)
[2022-12-14] MEDS: LIDOCAINE 5% TOPICAL PATCH TP SCH (10:20)
[2022-12-14] MEDS: BACITRACIN 0.9 GM PACKET TP SCH ×2 (10:20→21:36)
[2022-12-14] MEDS: ACETAMINOPHEN 325 MG TABLET (FP) PO PRN (10:21)
[2022-12-14] MEDS: BACLOFEN 10 MG TABLET (FP) PO PRN ×2 (10:21→21:36)
[2022-12-14] MEDS: THIAMINE HCL 100 MG TABLET (FP) PO SCH (21:36)
[2022-12-14] MEDS: QUEtiapine FUMARATE 50 MG TABLET PO PRN (21:36)
[2022-12-14] MEDS: MELATONIN 5 MG TABLETS PO SCH (21:36)
[2022-12-14] MEDS: METHYL SALICYLATE/MENTHOL OINT 30 GM TUBE TP SCH (21:38)
[2022-12-14] MEDS: LIDOCAINE PATCH REMOVAL MC SCH (21:51)
[2022-12-15] MEDS: PRENATAL VITAMINS W/ FOLIC ACID TABLET (FP) PO SCH (10:27)
[2022-12-15] MEDS: LIDOCAINE 5% TOPICAL PATCH TP SCH (10:28)
[2022-12-15] MEDS: BACLOFEN 10 MG TABLET (FP) PO PRN ×2 (10:28→21:35)
[2022-12-15] MEDS: IBUPROFEN 400 MG TABLET (FP) PO PRN (10:28)
[2022-12-15] MEDS: BACITRACIN 0.9 GM PACKET TP SCH ×2 (10:28→21:30)
[2022-12-15] MEDS: THIAMINE HCL 100 MG TABLET (FP) PO SCH (21:31)
[2022-12-15] MEDS: MELATONIN 5 MG TABLETS PO SCH (21:31)
[2022-12-15] MEDS: METHYL SALICYLATE/MENTHOL OINT 30 GM TUBE TP SCH (21:33)
[2022-12-15] MEDS: QUEtiapine FUMARATE 50 MG TABLET PO PRN (21:35)
[2022-12-15] MEDS: LIDOCAINE PATCH REMOVAL MC SCH (22:21)
[2022-12-16] MEDS: BACITRACIN 0.9 GM PACKET TP SCH ×2 (10:14→21:42)
[2022-12-16] MEDS: PRENATAL VITAMINS W/ FOLIC ACID TABLET (FP) PO SCH (10:14)
[2022-12-16] MEDS: BACLOFEN 10 MG TABLET (FP) PO PRN (10:14)
[2022-12-16] MEDS: LIDOCAINE 5% TOPICAL PATCH TP SCH (10:15)
[2022-12-16] MEDS: IBUPROFEN 400 MG TABLET (FP) PO PRN ×2 (10:16→21:38)
[2022-12-16] MEDS: hydrOXYzine PAMOATE 25 MG CAPSULE (FP) PO PRN (21:38)
[2022-12-16] MEDS: THIAMINE HCL 100 MG TABLET (FP) PO SCH (21:38)
[2022-12-16] MEDS: MELATONIN 5 MG TABLETS PO SCH (21:39)
[2022-12-16] MEDS: METHYL SALICYLATE/MENTHOL OINT 30 GM TUBE TP SCH (21:41)
[2022-12-16] MEDS: LIDOCAINE PATCH REMOVAL MC SCH (21:41)
[2022-12-17] MEDS: PRENATAL VITAMINS W/ FOLIC ACID TABLET (FP) PO SCH (10:42)
[2022-12-17] MEDS: LIDOCAINE 5% TOPICAL PATCH TP SCH (10:43)
[2022-12-17] MEDS: BACITRACIN 0.9 GM PACKET TP SCH ×2 (10:43→22:01)
[2022-12-17] MEDS: BACLOFEN 10 MG TABLET (FP) PO PRN ×2 (10:45→21:01)
[2022-12-17] MEDS: IBUPROFEN 400 MG TABLET (FP) PO PRN ×2 (10:45→21:01)
[2022-12-17] MEDS: QUEtiapine FUMARATE 50 MG TABLET PO PRN (21:01)
[2022-12-17] MEDS: MELATONIN 5 MG TABLETS PO SCH (21:01)
[2022-12-17] MEDS: THIAMINE HCL 100 MG TABLET (FP) PO SCH (21:01)
[2022-12-17] MEDS: METHYL SALICYLATE/MENTHOL OINT 30 GM TUBE TP SCH (21:02)
[2022-12-17] MEDS: LIDOCAINE PATCH REMOVAL MC SCH (22:01)
[2022-12-18] MEDS: ACETAMINOPHEN 325 MG TABLET (FP) PO PRN (06:45)
[2022-12-18] MEDS: BACITRACIN 0.9 GM PACKET TP SCH ×2 (09:38→21:51)
[2022-12-18] MEDS: PRENATAL VITAMINS W/ FOLIC ACID TABLET (FP) PO SCH (09:39)
[2022-12-18] MEDS: LIDOCAINE 5% TOPICAL PATCH TP SCH (09:39)
[2022-12-18] MEDS: BACLOFEN 10 MG TABLET (FP) PO PRN (21:51)
[2022-12-18] MEDS: MELATONIN 5 MG TABLETS PO SCH (21:51)
[2022-12-18] MEDS: QUEtiapine FUMARATE 50 MG TABLET PO PRN (21:51)
[2022-12-18] MEDS: THIAMINE HCL 100 MG TABLET (FP) PO SCH (21:51)
[2022-12-18] MEDS: IBUPROFEN 400 MG TABLET (FP) PO PRN (21:52)
[2022-12-18] MEDS: LIDOCAINE PATCH REMOVAL MC SCH (21:59)
[2022-12-18] MEDS: METHYL SALICYLATE/MENTHOL OINT 30 GM TUBE TP SCH (21:59)
[2022-12-19] MEDS: BACLOFEN 10 MG TABLET (FP) PO PRN ×2 (10:26→21:28)
[2022-12-19] MEDS: PRENATAL VITAMINS W/ FOLIC ACID TABLET (FP) PO SCH (10:26)
[2022-12-19] MEDS: IBUPROFEN 400 MG TABLET (FP) PO PRN (10:26)
[2022-12-19] MEDS: LIDOCAINE 5% TOPICAL PATCH TP SCH (10:27)
[2022-12-19] MEDS: BACITRACIN 0.9 GM PACKET TP SCH ×2 (10:27→21:28)
[2022-12-19] MEDS: MELATONIN 5 MG TABLETS PO SCH (21:26)
[2022-12-19] MEDS: MAG HYDROX/AL HYDROX/SIMETH 30 ML UNIT-DOSE CUP PO PRN (21:28)
[2022-12-19] MEDS: QUEtiapine FUMARATE 50 MG TABLET PO PRN (21:28)
[2022-12-19] MEDS: THIAMINE HCL 100 MG TABLET (FP) PO SCH (21:28)
[2022-12-19] MEDS: METHYL SALICYLATE/MENTHOL OINT 30 GM TUBE TP SCH (21:29)
[2022-12-19] MEDS: LIDOCAINE PATCH REMOVAL MC SCH (21:30)
[2022-12-20] MEDS: MAG HYDROX/AL HYDROX/SIMETH 30 ML UNIT-DOSE CUP PO PRN (06:19)
[2022-12-20] MEDS: BACITRACIN 0.9 GM PACKET TP SCH ×2 (10:34→21:31)
[2022-12-20] MEDS: LIDOCAINE 5% TOPICAL PATCH TP SCH (10:34)
[2022-12-20] MEDS: PRENATAL VITAMINS W/ FOLIC ACID TABLET (FP) PO SCH (10:34)
[2022-12-20] MEDS: QUEtiapine FUMARATE 50 MG TABLET PO PRN (21:31)
[2022-12-20] MEDS: THIAMINE HCL 100 MG TABLET (FP) PO SCH (21:31)
[2022-12-20] MEDS: BACLOFEN 10 MG TABLET (FP) PO PRN (21:31)
[2022-12-20] MEDS: MELATONIN 5 MG TABLETS PO SCH (21:31)
[2022-12-20] MEDS: LIDOCAINE PATCH REMOVAL MC SCH (21:31)
[2022-12-20] MEDS: METHYL SALICYLATE/MENTHOL OINT 30 GM TUBE TP SCH (21:32)
[2022-12-20] MEDS: IBUPROFEN 400 MG TABLET (FP) PO PRN (21:32)
[2022-12-21] MEDS: BACITRACIN 0.9 GM PACKET TP SCH ×2 (10:26→21:02)
[2022-12-21] MEDS: PRENATAL VITAMINS W/ FOLIC ACID TABLET (FP) PO SCH (10:26)
[2022-12-21] MEDS: LIDOCAINE 5% TOPICAL PATCH TP SCH (10:26)
[2022-12-21] MEDS: IBUPROFEN 400 MG TABLET (FP) PO PRN ×2 (10:28→21:03)
[2022-12-21] MEDS: BACLOFEN 10 MG TABLET (FP) PO PRN ×2 (10:28→21:03)
[2022-12-21] MEDS: THIAMINE HCL 100 MG TABLET (FP) PO SCH (21:03)
[2022-12-21] MEDS: MELATONIN 5 MG TABLETS PO SCH (21:03)
[2022-12-21] MEDS: METHYL SALICYLATE/MENTHOL OINT 30 GM TUBE TP SCH (21:04)
[2022-12-21] MEDS: LIDOCAINE PATCH REMOVAL MC SCH (22:32)
[2022-12-22] MEDS: ACETAMINOPHEN 325 MG TABLET (FP) PO PRN (06:16)
[2022-12-22] MEDS: BACITRACIN 0.9 GM PACKET TP SCH ×2 (09:48→21:03)
[2022-12-22] MEDS: BACLOFEN 10 MG TABLET (FP) PO PRN ×2 (09:48→21:04)
[2022-12-22] MEDS: PRENATAL VITAMINS W/ FOLIC ACID TABLET (FP) PO SCH (09:48)
[2022-12-22] MEDS: LIDOCAINE 5% TOPICAL PATCH TP SCH (09:48)
[2022-12-22] MEDS: THIAMINE HCL 100 MG TABLET (FP) PO SCH (21:03)
[2022-12-22] MEDS: QUEtiapine FUMARATE 50 MG TABLET PO PRN (21:03)
[2022-12-22] MEDS: IBUPROFEN 400 MG TABLET (FP) PO PRN (21:04)
[2022-12-22] MEDS: MELATONIN 5 MG TABLETS PO SCH (21:05)
[2022-12-22] MEDS: LIDOCAINE PATCH REMOVAL MC SCH (21:05)
[2022-12-22] MEDS: METHYL SALICYLATE/MENTHOL OINT 30 GM TUBE TP SCH (21:05)
[2022-12-23] MEDS: ACETAMINOPHEN 325 MG TABLET (FP) PO PRN (06:12)
[2022-12-23 06:38] VITALS: BP 141/82; PULSE 68; RESP 16; TEMP 97.4
[2022-12-23] MEDS: BACLOFEN 10 MG TABLET (FP) PO PRN (09:34)
[2022-12-23] MEDS: LIDOCAINE 5% TOPICAL PATCH TP SCH (09:34)
[2022-12-23] MEDS: IBUPROFEN 400 MG TABLET (FP) PO PRN (09:34)
[2022-12-23] MEDS: PRENATAL VITAMINS W/ FOLIC ACID TABLET (FP) PO SCH (09:34)
[2022-12-23] MEDS: BACITRACIN 0.9 GM PACKET TP SCH (09:34)
== END 2022-12-23 10:15 | disposition home or self-care (01) | DRG 772 ==
LOC: YASAS 09:50 → Y5N 13:28
PROVIDERS: ADMIT Allergy & Immunology; ATTEND Psychiatry & Neurology Pain Medicine
PROC: HZ42ZZZ Group Counseling for Substance Abuse Treatment, Cognitive-Behavioral (ICD-10-PCS; principal; 2022-11-26)
DX: F11.20 Opioid dependence, uncomplicated (principal); F14.20 Cocaine dependence, uncomplicated; F10.20 Alcohol dependence, uncomplicated; F17.210 Nicotine dependence, cigarettes, uncomplicated; F39 Unspecified mood [affective] disorder; R10.13 Epigastric pain; S69.81XD Other specified injuries of right wrist, hand and finger(s), subsequent encounter; S49.82XD Other specified injuries of left shoulder and upper arm, subsequent encounter; S05.01XD Injury of conjunctiva and corneal abrasion without foreign body, right eye, subsequent encounter; Y09 Assault by unspecified means
CPT/HCPCS: 36415; 73030-TC-LT-FY; 73130-TC-RT-FY; 80053; 81003; 85027; 86780; 86803; 87811; 99282-25; C9803-CS; J0475; U0003; U0005

== ENCOUNTER 2022-11-30 13:47 | Emergency (ER) | payer OTHER ==
[2022-11-30 14:25] VITALS: BP 117/77; PULSE 73; RESP 18; TEMP 98.4; BMI 27.4
[2022-11-30] MEDS ORDERED: BACITRACIN 0.9 GM PACKET TP ONE (15:27)
[2022-11-30] MEDS ORDERED: BACITRACIN ZINC 15 GM TUBE TOPICAL OINTMENT ONE (15:31)
== END 2022-11-30 15:54 | disposition home or self-care (01) ==
LOC: JERFT 13:47 → JER 13:47 → JERFT 15:54
DX: S61.411D Laceration without foreign body of right hand, subsequent encounter (principal); Z48.02 Encounter for removal of sutures
CPT/HCPCS: 99282-25

== ENCOUNTER 2023-08-21 10:03 | Inpatient (IN) | payer OTHER ==
[2023-08-21] MEDS ORDERED: NALOXONE HCL 0.4 MG/ML VIAL IM PRN (11:27)
[2023-08-21] MEDS ORDERED: guaiFENesin 600 MG TABLET.ER (FP) PO PRN (11:27)
[2023-08-21] MEDS ORDERED: NALOXONE HCL (KLOXXADO) 8 MG SPRAY NS PRN (11:27)
[2023-08-21] MEDS ORDERED: BISMUTH SUBSALICYLATE 262 MG/15 ML BTL PO PRN (11:27)
[2023-08-21] MEDS ORDERED: MAG HYDROX/AL HYDROX/SIMETH 30 ML UNIT-DOSE CUP PO PRN (11:27)
[2023-08-21] MEDS ORDERED: ONDANSETRON *ODT* 4 MG TABLET SL PRN (11:27)
[2023-08-21] MEDS ORDERED: BENZONATATE 200 MG CAPSULE PO PRN (11:27)
[2023-08-21] MEDS ORDERED: LOPERAMIDE HCL 2 MG CAPSULE PO PRN (11:27)
[2023-08-21] MEDS ORDERED: ACETAMINOPHEN 325 MG TABLET (FP) PO PRN (11:27)
[2023-08-21] MEDS ORDERED: BENZOCAINE/MENTHOL (CHLORASEPTIC ) LOZENGE MM PRN (11:27)
[2023-08-21] MEDS ORDERED: NICOTINE POLACRILEX 2 MG GUM BUC PRN (11:27)
[2023-08-21] MEDS ORDERED: MAGNESIUM HYDROX 2400MG/30ML ORAL SUSPENSION 30 ML CUP PO PRN (11:27)
[2023-08-21] MEDS ORDERED: IBUPROFEN 400 MG TABLET (FP) PO PRN (11:27)
[2023-08-21] MEDS ORDERED: hydrOXYzine PAMOATE 25 MG CAPSULE (FP) PO PRN (11:27)
[2023-08-21] MEDS ORDERED: POLYETHYLENE GLYCOL (HEALTHYLAX) 3350 17 GM PACKET PO PRN (11:27)
[2023-08-21 11:38] VITALS: BMI 28.5
[2023-08-21] MEDS ORDERED: IBUPROFEN 600 MG TABLET (FP) PO ONE (11:55)
[2023-08-21] MEDS: IBUPROFEN 600 MG TABLET (FP) PO PRN (12:09)
[2023-08-21 16:18] LABS: HEMATOCRIT 36.7 % (35.4-49); HEMOGLOBIN 12.6 GM/dL (11.7-16.9); MCH 30.9 pg (25.7-33.7); MCHC 34.3 g/dl (32.0-35.9); MEAN CELL VOLUME 90.1 fl (80-96); MEAN PLT VOLUME 8.9 fl (7.5-11.1); PLATELET COUNT 265 10^3/uL (134-434); RBC 4.08 M/mm3 (4.00-5.60); RDW 13.7 % (11.9-15.9); WHITE BLOOD COUNT 11.6 K/mm3 (4.0-10.0)
[2023-08-21 16:25] LABS: POTASSIUM 3.5 mmol/L (3.5-5.1)
[2023-08-21 16:31] LABS: ALBUMIN 4.1 g/dl (3.4-5.0); BLOOD UREA NITROGEN 18.9 mg/dL (7-18)
[2023-08-21 16:32] LABS: CALCIUM 9.4 mg/dL (8.5-10.1)
[2023-08-21 16:34] LABS: CREATININE 0.8 mg/dL (0.55-1.3)
[2023-08-21 16:36] LABS: BILIRUBIN,TOTAL 0.8 mg/dL (0.2-1); TOT PROT 7.3 g/dl (6.4-8.2)
[2023-08-21 17:21] LABS: HIV INTERPRETATION NEGATIVE (NEGATIVE)
[2023-08-21] MEDS: MELATONIN 5 MG TABLETS PO SCH (23:06)
[2023-08-21] MEDS: THIAMINE HCL 100 MG TABLET (FP) PO SCH (23:06)
[2023-08-22] MEDS ORDERED: LORazepam 1 MG TABLET PO PRN (09:48)
[2023-08-22] MEDS ORDERED: methaDONE HCL 10 MG TABLET PO SCH (10:00)
[2023-08-22] MEDS: LORazepam 2 MG TABLET PO SCH ×3 (10:30→22:12)
[2023-08-22] MEDS: PRENATAL VITAMINS W/ FOLIC ACID TABLET (FP) PO SCH (10:31)
[2023-08-22] MEDS: NICOTINE 14 MG/24 HOURS TOPICAL PATCH TD SCH (10:32)
[2023-08-22] MEDS: MELATONIN 5 MG TABLETS PO SCH (22:11)
[2023-08-22] MEDS: THIAMINE HCL 100 MG TABLET (FP) PO SCH (22:11)
[2023-08-22] MEDS: QUEtiapine FUMARATE 50 MG TABLET PO SCH (22:11)
[2023-08-23] MEDS: LORazepam 2 MG TABLET PO SCH ×4 (05:52→22:38)
[2023-08-23] MEDS: PRENATAL VITAMINS W/ FOLIC ACID TABLET (FP) PO SCH (10:17)
[2023-08-23] MEDS: NICOTINE 14 MG/24 HOURS TOPICAL PATCH TD SCH (10:17)
[2023-08-23 10:32] LABS: BASO % 0.4 % (0-2.0); EOS % 3.5 % (0-4.5); HEMATOCRIT 34.6 % (35.4-49); HEMOGLOBIN 11.4 GM/dL (11.7-16.9); LYMPH % 41.8 % (8-40); MCH 30.5 pg (25.7-33.7); MCHC 32.9 g/dl (32.0-35.9); MEAN CELL VOLUME 92.6 fl (80-96); MONO % 5.3 % (3.8-10.2); PLATELET COUNT 224 10^3/uL (134-434); RBC 3.73 M/mm3 (4.00-5.60); RDW 13.8 % (11.9-15.9); WHITE BLOOD COUNT 7.4 K/mm3 (4.0-10.0)
[2023-08-23] MEDS: THIAMINE HCL 100 MG TABLET (FP) PO SCH (22:38)
[2023-08-23] MEDS: QUEtiapine FUMARATE 50 MG TABLET PO SCH (22:38)
[2023-08-23] MEDS: MELATONIN 5 MG TABLETS PO SCH (22:38)
[2023-08-24] MEDS: LORazepam 1 MG TABLET PO SCH ×4 (05:56→22:00)
[2023-08-24] MEDS: NICOTINE 14 MG/24 HOURS TOPICAL PATCH TD SCH (10:21)
[2023-08-24] MEDS: PRENATAL VITAMINS W/ FOLIC ACID TABLET (FP) PO SCH (10:21)
[2023-08-24] MEDS: QUEtiapine FUMARATE 50 MG TABLET PO SCH (21:57)
[2023-08-24] MEDS: THIAMINE HCL 100 MG TABLET (FP) PO SCH (21:57)
[2023-08-24] MEDS: MELATONIN 5 MG TABLETS PO SCH (21:57)
[2023-08-25] MEDS ORDERED: LORazepam 0.5 MG TABLET PO PRN
[2023-08-25] MEDS: LORazepam 0.5 MG TABLET PO SCH ×2 (05:33→10:11)
[2023-08-25] MEDS: PRENATAL VITAMINS W/ FOLIC ACID TABLET (FP) PO SCH (10:10)
[2023-08-25] MEDS: NICOTINE 14 MG/24 HOURS TOPICAL PATCH TD SCH (10:11)
[2023-08-25] MEDS: IBUPROFEN 600 MG TABLET (FP) PO PRN (10:12)
[2023-08-25 13:29] VITALS: BP 124/67; PULSE 89; RESP 19; TEMP 97.8
[2023-08-26] MEDS ORDERED: LORazepam 0.5 MG TABLET PO ONE (05:00)
== END 2023-08-25 15:25 | disposition other institution (70) | DRG 773 ==
LOC: YASAS 10:03 → Y3N 13:15
PROVIDERS: ADMIT Allergy & Immunology; ATTEND Surgery
PROC: HZ2ZZZZ Detoxification Services for Substance Abuse Treatment (ICD-10-PCS; principal; 2023-08-21)
DX: F10.230 Alcohol dependence with withdrawal, uncomplicated (principal); F11.20 Opioid dependence, uncomplicated; F14.20 Cocaine dependence, uncomplicated; F17.210 Nicotine dependence, cigarettes, uncomplicated; F25.0 Schizoaffective disorder, bipolar type; F41.9 Anxiety disorder, unspecified; G47.00 Insomnia, unspecified; Z91.199 Patient's noncompliance with other medical treatment and regimen due to unspecified reason
CPT/HCPCS: 36415; 80053; 80307; 83036; 84450; 84460; 85025; 85027; 86780; 87389; 87635; 87811

== ENCOUNTER 2023-08-25 15:12 | Inpatient (IN) | payer OTHER ==
[2023-08-25] MEDS ORDERED: POLYETHYLENE GLYCOL (HEALTHYLAX) 3350 17 GM PACKET PO PRN (15:52)
[2023-08-25] MEDS ORDERED: NALOXONE HCL (KLOXXADO) 8 MG SPRAY NS PRN (15:52)
[2023-08-25] MEDS ORDERED: ACETAMINOPHEN 325 MG TABLET (FP) PO PRN (15:52)
[2023-08-25] MEDS ORDERED: COLLOIDAL OATMEAL 1 BAR EACH TP PRN (15:52)
[2023-08-25] MEDS ORDERED: MAGNESIUM HYDROX 2400MG/30ML ORAL SUSPENSION 30 ML CUP PO PRN (15:52)
[2023-08-25] MEDS ORDERED: NALOXONE HCL 0.4 MG/ML VIAL IVPUSH PRN (15:52)
[2023-08-25] MEDS ORDERED: BENZOCAINE/MENTHOL (CHLORASEPTIC ) LOZENGE MM PRN (15:52)
[2023-08-25] MEDS ORDERED: LOPERAMIDE HCL 2 MG CAPSULE PO PRN (15:52)
[2023-08-25] MEDS ORDERED: guaiFENesin 600 MG TABLET.ER (FP) PO PRN (15:52)
[2023-08-25] MEDS ORDERED: BENZONATATE 200 MG CAPSULE PO PRN (15:52)
[2023-08-25] MEDS ORDERED: MAG HYDROX/AL HYDROX/SIMETH 30 ML UNIT-DOSE CUP PO PRN (15:52)
[2023-08-25] MEDS: THIAMINE HCL 100 MG TABLET (FP) PO SCH (21:11)
[2023-08-25] MEDS: LIDOCAINE PATCH REMOVAL MC SCH (21:12)
[2023-08-25] MEDS: hydrOXYzine PAMOATE 25 MG CAPSULE (FP) PO PRN (21:12)
[2023-08-25] MEDS ORDERED: QUEtiapine FUMARATE 50 MG TABLET PO SCH (22:00)
[2023-08-25] MEDS ORDERED: MELATONIN 5 MG TABLETS PO SCH (22:00)
[2023-08-26] MEDS: PRENATAL VITAMINS W/ FOLIC ACID TABLET (FP) PO SCH (09:51)
[2023-08-26] MEDS: LIDOCAINE 4% PATCH TP SCH (09:52)
[2023-08-26] MEDS ORDERED: methaDONE HCL 40 MG DISPERSABLE TABLET PO SCH (10:00)
[2023-08-26] MEDS ORDERED: PNEUMOC 20-VAL CONJ-DIP CRM/PF 0.5 ML SYRINGE IM ONE (12:00)
[2023-08-26] MEDS ORDERED: FLU VACCINE (FLULAVAL) PF 60 MCG/0.5 ML SYRINGE 2023-2024 IM ONE (12:00)
[2023-08-26] MEDS: IBUPROFEN 400 MG TABLET (FP) PO PRN (12:04)
[2023-08-26] MEDS: LIDOCAINE PATCH REMOVAL MC SCH (21:51)
[2023-08-26] MEDS: THIAMINE HCL 100 MG TABLET (FP) PO SCH (21:51)
[2023-08-26] MEDS: QUEtiapine FUMARATE 100 MG TABLET (FP) PO SCH (21:51)
[2023-08-26] MEDS: IBUPROFEN 600 MG TABLET (FP) PO PRN (21:52)
[2023-08-26] MEDS: METHOCARBAMOL 500 MG TABLET PO PRN (21:52)
[2023-08-27] MEDS: PRENATAL VITAMINS W/ FOLIC ACID TABLET (FP) PO SCH (09:19)
[2023-08-27] MEDS: LIDOCAINE 4% PATCH TP SCH (09:19)
[2023-08-27] MEDS: METHOCARBAMOL 500 MG TABLET PO PRN ×2 (09:19→21:19)
[2023-08-27] MEDS: IBUPROFEN 600 MG TABLET (FP) PO PRN (13:35)
[2023-08-27] MEDS: LIDOCAINE PATCH REMOVAL MC SCH (21:18)
[2023-08-27] MEDS: QUEtiapine FUMARATE 100 MG TABLET (FP) PO SCH (21:19)
[2023-08-27] MEDS: THIAMINE HCL 100 MG TABLET (FP) PO SCH (21:19)
[2023-08-28] MEDS: PRENATAL VITAMINS W/ FOLIC ACID TABLET (FP) PO SCH (09:34)
[2023-08-28] MEDS: LIDOCAINE 4% PATCH TP SCH (09:34)
[2023-08-28] MEDS: IBUPROFEN 600 MG TABLET (FP) PO PRN ×2 (09:36→13:14)
[2023-08-28] MEDS: METHOCARBAMOL 500 MG TABLET PO PRN ×4 (09:36→21:12)
[2023-08-28] MEDS: LACTULOSE 20 GM/30 ML UDC (FOR ORAL USE ONLY) PO SCH ×2 (14:53→21:12)
[2023-08-28] MEDS: QUEtiapine FUMARATE 100 MG TABLET (FP) PO SCH (21:12)
[2023-08-28] MEDS: LIDOCAINE PATCH REMOVAL MC SCH (21:12)
[2023-08-28] MEDS: THIAMINE HCL 100 MG TABLET (FP) PO SCH (21:12)
[2023-08-29] MEDS: LACTULOSE 20 GM/30 ML UDC (FOR ORAL USE ONLY) PO SCH ×3 (06:25→21:22)
[2023-08-29] MEDS: LIDOCAINE 4% PATCH TP SCH (09:43)
[2023-08-29] MEDS: PRENATAL VITAMINS W/ FOLIC ACID TABLET (FP) PO SCH (09:43)
[2023-08-29] MEDS: METHOCARBAMOL 500 MG TABLET PO PRN ×2 (09:44→21:21)
[2023-08-29] MEDS: LIDOCAINE PATCH REMOVAL MC SCH (21:20)
[2023-08-29] MEDS: THIAMINE HCL 100 MG TABLET (FP) PO SCH (21:20)
[2023-08-29] MEDS: QUEtiapine FUMARATE 100 MG TABLET (FP) PO SCH (21:20)
[2023-08-29] MEDS: IBUPROFEN 600 MG TABLET (FP) PO PRN (21:21)
[2023-08-30] MEDS: LACTULOSE 20 GM/30 ML UDC (FOR ORAL USE ONLY) PO SCH ×3 (06:15→21:11)
[2023-08-30] MEDS: LIDOCAINE 4% PATCH TP SCH (09:57)
[2023-08-30] MEDS: PRENATAL VITAMINS W/ FOLIC ACID TABLET (FP) PO SCH (09:57)
[2023-08-30] MEDS: METHOCARBAMOL 500 MG TABLET PO PRN (09:58)
[2023-08-30] MEDS: IBUPROFEN 600 MG TABLET (FP) PO PRN ×2 (13:30→21:12)
[2023-08-30] MEDS: THIAMINE HCL 100 MG TABLET (FP) PO SCH (21:11)
[2023-08-30] MEDS: QUEtiapine FUMARATE 100 MG TABLET (FP) PO SCH (21:11)
[2023-08-30] MEDS: LIDOCAINE PATCH REMOVAL MC SCH (21:11)
[2023-08-31] MEDS: LACTULOSE 20 GM/30 ML UDC (FOR ORAL USE ONLY) PO SCH ×3 (06:17→21:18)
[2023-08-31] MEDS: METHOCARBAMOL 500 MG TABLET PO PRN (09:34)
[2023-08-31] MEDS: LIDOCAINE 4% PATCH TP SCH (09:35)
[2023-08-31] MEDS: PRENATAL VITAMINS W/ FOLIC ACID TABLET (FP) PO SCH (09:35)
[2023-08-31] MEDS: IBUPROFEN 600 MG TABLET (FP) PO PRN ×2 (13:44→21:18)
[2023-08-31] MEDS: THIAMINE HCL 100 MG TABLET (FP) PO SCH (21:17)
[2023-08-31] MEDS: LIDOCAINE PATCH REMOVAL MC SCH (21:18)
[2023-08-31] MEDS: QUEtiapine FUMARATE 100 MG TABLET (FP) PO SCH (21:18)
[2023-08-31] MEDS: hydrOXYzine PAMOATE 25 MG CAPSULE (FP) PO PRN (21:20)
[2023-09-01] MEDS: LACTULOSE 20 GM/30 ML UDC (FOR ORAL USE ONLY) PO SCH ×3 (06:20→21:26)
[2023-09-01] MEDS: LIDOCAINE 4% PATCH TP SCH (09:53)
[2023-09-01] MEDS: PRENATAL VITAMINS W/ FOLIC ACID TABLET (FP) PO SCH (09:53)
[2023-09-01] MEDS: QUEtiapine FUMARATE 100 MG TABLET (FP) PO SCH (21:27)
[2023-09-01] MEDS: THIAMINE HCL 100 MG TABLET (FP) PO SCH (21:27)
[2023-09-01] MEDS: METHOCARBAMOL 500 MG TABLET PO SCH (21:28)
[2023-09-01] MEDS: LIDOCAINE PATCH REMOVAL MC SCH (21:51)
[2023-09-02] MEDS: hydrOXYzine PAMOATE 25 MG CAPSULE (FP) PO PRN ×2 (06:48→21:23)
[2023-09-02] MEDS: LACTULOSE 20 GM/30 ML UDC (FOR ORAL USE ONLY) PO SCH ×3 (06:49→22:53)
[2023-09-02] MEDS: METHOCARBAMOL 500 MG TABLET PO SCH ×2 (09:09→21:23)
[2023-09-02] MEDS: LIDOCAINE 4% PATCH TP SCH (09:09)
[2023-09-02] MEDS: PRENATAL VITAMINS W/ FOLIC ACID TABLET (FP) PO SCH (09:09)
[2023-09-02] MEDS: IBUPROFEN 400 MG TABLET (FP) PO PRN (13:01)
[2023-09-02] MEDS: THIAMINE HCL 100 MG TABLET (FP) PO SCH (21:24)
[2023-09-02] MEDS: QUEtiapine FUMARATE 100 MG TABLET (FP) PO SCH (21:24)
[2023-09-02] MEDS: LIDOCAINE PATCH REMOVAL MC SCH (22:53)
[2023-09-03] MEDS: LACTULOSE 20 GM/30 ML UDC (FOR ORAL USE ONLY) PO SCH ×3 (05:56→21:08)
[2023-09-03] MEDS: LIDOCAINE 4% PATCH TP SCH (10:22)
[2023-09-03] MEDS: PRENATAL VITAMINS W/ FOLIC ACID TABLET (FP) PO SCH (10:22)
[2023-09-03] MEDS: METHOCARBAMOL 500 MG TABLET PO SCH ×2 (10:22→21:07)
[2023-09-03] MEDS: hydrOXYzine PAMOATE 25 MG CAPSULE (FP) PO PRN (21:07)
[2023-09-03] MEDS: QUEtiapine FUMARATE 100 MG TABLET (FP) PO SCH (21:08)
[2023-09-03] MEDS: THIAMINE HCL 100 MG TABLET (FP) PO SCH (21:08)
[2023-09-03] MEDS: LIDOCAINE PATCH REMOVAL MC SCH (21:08)
[2023-09-04] MEDS: LACTULOSE 20 GM/30 ML UDC (FOR ORAL USE ONLY) PO SCH ×3 (06:13→21:08)
[2023-09-04] MEDS: hydrOXYzine PAMOATE 25 MG CAPSULE (FP) PO PRN (09:38)
[2023-09-04] MEDS: METHOCARBAMOL 500 MG TABLET PO SCH ×2 (09:39→21:07)
[2023-09-04] MEDS: LIDOCAINE 4% PATCH TP SCH (09:39)
[2023-09-04] MEDS: PRENATAL VITAMINS W/ FOLIC ACID TABLET (FP) PO SCH (09:39)
[2023-09-04] MEDS: IBUPROFEN 600 MG TABLET (FP) PO PRN (13:33)
[2023-09-04] MEDS: THIAMINE HCL 100 MG TABLET (FP) PO SCH (21:07)
[2023-09-04] MEDS: LIDOCAINE PATCH REMOVAL MC SCH (21:08)
[2023-09-04] MEDS: QUEtiapine FUMARATE 100 MG TABLET (FP) PO SCH (21:08)
[2023-09-05] MEDS: LACTULOSE 20 GM/30 ML UDC (FOR ORAL USE ONLY) PO SCH ×3 (06:14→22:19)
[2023-09-05] MEDS: LIDOCAINE 4% PATCH TP SCH (09:51)
[2023-09-05] MEDS: METHOCARBAMOL 500 MG TABLET PO SCH ×2 (09:51→21:23)
[2023-09-05] MEDS: PRENATAL VITAMINS W/ FOLIC ACID TABLET (FP) PO SCH (09:51)
[2023-09-05] MEDS: QUEtiapine FUMARATE 100 MG TABLET (FP) PO SCH (21:23)
[2023-09-05] MEDS: THIAMINE HCL 100 MG TABLET (FP) PO SCH (21:23)
[2023-09-05] MEDS: LIDOCAINE PATCH REMOVAL MC SCH (22:20)
[2023-09-06] MEDS: LACTULOSE 20 GM/30 ML UDC (FOR ORAL USE ONLY) PO SCH ×3 (06:13→21:18)
[2023-09-06] MEDS: METHOCARBAMOL 500 MG TABLET PO SCH ×2 (09:29→21:19)
[2023-09-06] MEDS: PRENATAL VITAMINS W/ FOLIC ACID TABLET (FP) PO SCH (09:29)
[2023-09-06] MEDS: LIDOCAINE 4% PATCH TP SCH (09:29)
[2023-09-06] MEDS: IBUPROFEN 600 MG TABLET (FP) PO PRN ×2 (13:49→21:19)
[2023-09-06] MEDS: LIDOCAINE PATCH REMOVAL MC SCH (21:18)
[2023-09-06] MEDS: QUEtiapine FUMARATE 100 MG TABLET (FP) PO SCH (21:19)
[2023-09-06] MEDS: THIAMINE HCL 100 MG TABLET (FP) PO SCH (21:28)
[2023-09-07] MEDS: LACTULOSE 20 GM/30 ML UDC (FOR ORAL USE ONLY) PO SCH ×3 (06:06→21:17)
[2023-09-07] MEDS: PRENATAL VITAMINS W/ FOLIC ACID TABLET (FP) PO SCH (09:42)
[2023-09-07] MEDS: IBUPROFEN 600 MG TABLET (FP) PO PRN ×2 (09:43→21:19)
[2023-09-07] MEDS: LIDOCAINE 4% PATCH TP SCH (09:43)
[2023-09-07] MEDS: METHOCARBAMOL 500 MG TABLET PO SCH ×2 (09:43→21:20)
[2023-09-07] MEDS: hydrOXYzine PAMOATE 25 MG CAPSULE (FP) PO PRN ×2 (13:30→21:20)
[2023-09-07] MEDS: QUEtiapine FUMARATE 100 MG TABLET (FP) PO SCH (21:18)
[2023-09-07] MEDS: LIDOCAINE PATCH REMOVAL MC SCH (21:19)
[2023-09-07] MEDS: THIAMINE HCL 100 MG TABLET (FP) PO SCH (21:20)
[2023-09-08] MEDS: LACTULOSE 20 GM/30 ML UDC (FOR ORAL USE ONLY) PO SCH ×3 (06:14→21:19)
[2023-09-08] MEDS: LIDOCAINE 4% PATCH TP SCH (10:11)
[2023-09-08] MEDS: PRENATAL VITAMINS W/ FOLIC ACID TABLET (FP) PO SCH (10:11)
[2023-09-08] MEDS: hydrOXYzine PAMOATE 25 MG CAPSULE (FP) PO PRN (10:12)
[2023-09-08] MEDS: METHOCARBAMOL 500 MG TABLET PO SCH ×2 (10:12→21:06)
[2023-09-08] MEDS: IBUPROFEN 600 MG TABLET (FP) PO PRN ×2 (14:50→21:05)
[2023-09-08] MEDS: THIAMINE HCL 100 MG TABLET (FP) PO SCH (21:05)
[2023-09-08] MEDS: NICOTINE POLACRILEX 4 MG GUM BUC PRN (21:06)
[2023-09-08] MEDS: LIDOCAINE PATCH REMOVAL MC SCH (21:19)
[2023-09-08] MEDS: QUEtiapine FUMARATE 100 MG TABLET (FP) PO SCH (21:20)
[2023-09-09] MEDS: LACTULOSE 20 GM/30 ML UDC (FOR ORAL USE ONLY) PO SCH ×3 (06:19→21:19)
[2023-09-09] MEDS: hydrOXYzine PAMOATE 25 MG CAPSULE (FP) PO PRN ×2 (06:19→21:19)
[2023-09-09] MEDS: METHOCARBAMOL 500 MG TABLET PO SCH ×2 (09:40→21:19)
[2023-09-09] MEDS: IBUPROFEN 600 MG TABLET (FP) PO PRN ×2 (09:40→13:31)
[2023-09-09] MEDS: PRENATAL VITAMINS W/ FOLIC ACID TABLET (FP) PO SCH (09:40)
[2023-09-09] MEDS: LIDOCAINE 4% PATCH TP SCH (09:41)
[2023-09-09] MEDS: THIAMINE HCL 100 MG TABLET (FP) PO SCH (21:19)
[2023-09-09] MEDS: LIDOCAINE PATCH REMOVAL MC SCH (21:20)
[2023-09-09] MEDS: QUEtiapine FUMARATE 100 MG TABLET (FP) PO SCH (22:09)
[2023-09-10] MEDS: LACTULOSE 20 GM/30 ML UDC (FOR ORAL USE ONLY) PO SCH ×3 (06:15→21:14)
[2023-09-10] MEDS: hydrOXYzine PAMOATE 25 MG CAPSULE (FP) PO PRN (06:16)
[2023-09-10] MEDS: PRENATAL VITAMINS W/ FOLIC ACID TABLET (FP) PO SCH (09:34)
[2023-09-10] MEDS: LIDOCAINE 4% PATCH TP SCH (09:34)
[2023-09-10] MEDS: METHOCARBAMOL 500 MG TABLET PO SCH ×2 (09:35→21:14)
[2023-09-10] MEDS: IBUPROFEN 600 MG TABLET (FP) PO PRN (09:35)
[2023-09-10] MEDS: THIAMINE HCL 100 MG TABLET (FP) PO SCH (21:14)
[2023-09-10] MEDS: QUEtiapine FUMARATE 100 MG TABLET (FP) PO SCH (21:14)
[2023-09-10] MEDS: LIDOCAINE PATCH REMOVAL MC SCH (21:15)
[2023-09-11] MEDS: LACTULOSE 20 GM/30 ML UDC (FOR ORAL USE ONLY) PO SCH ×3 (06:22→22:13)
[2023-09-11] MEDS: hydrOXYzine PAMOATE 25 MG CAPSULE (FP) PO PRN ×2 (06:24→17:06)
[2023-09-11] MEDS: PRENATAL VITAMINS W/ FOLIC ACID TABLET (FP) PO SCH (09:41)
[2023-09-11] MEDS: LIDOCAINE 4% PATCH TP SCH (09:42)
[2023-09-11] MEDS: METHOCARBAMOL 500 MG TABLET PO SCH ×2 (09:42→22:14)
[2023-09-11] MEDS: IBUPROFEN 600 MG TABLET (FP) PO PRN (13:20)
[2023-09-11] MEDS: QUEtiapine FUMARATE 100 MG TABLET (FP) PO SCH (22:13)
[2023-09-11] MEDS: LIDOCAINE PATCH REMOVAL MC SCH (22:13)
[2023-09-11] MEDS: THIAMINE HCL 100 MG TABLET (FP) PO SCH (22:14)
[2023-09-12] MEDS: LACTULOSE 20 GM/30 ML UDC (FOR ORAL USE ONLY) PO SCH ×2 (06:12→13:13)
[2023-09-12] MEDS: PRENATAL VITAMINS W/ FOLIC ACID TABLET (FP) PO SCH (09:39)
[2023-09-12] MEDS: hydrOXYzine PAMOATE 25 MG CAPSULE (FP) PO PRN (09:39)
[2023-09-12] MEDS: METHOCARBAMOL 500 MG TABLET PO SCH ×2 (09:39→21:54)
[2023-09-12] MEDS: LIDOCAINE 4% PATCH TP SCH (09:39)
[2023-09-12] MEDS: LIDOCAINE PATCH REMOVAL MC SCH (21:53)
[2023-09-12] MEDS: QUEtiapine FUMARATE 100 MG TABLET (FP) PO SCH (21:54)
[2023-09-12] MEDS: THIAMINE HCL 100 MG TABLET (FP) PO SCH (21:54)
[2023-09-13] MEDS: hydrOXYzine PAMOATE 25 MG CAPSULE (FP) PO PRN ×2 (06:14→21:30)
[2023-09-13] MEDS: METHOCARBAMOL 500 MG TABLET PO SCH ×2 (09:53→21:29)
[2023-09-13] MEDS: LIDOCAINE 4% PATCH TP SCH (09:53)
[2023-09-13] MEDS: PRENATAL VITAMINS W/ FOLIC ACID TABLET (FP) PO SCH (09:53)
[2023-09-13] MEDS: NICOTINE POLACRILEX 4 MG GUM BUC PRN (09:55)
[2023-09-13] MEDS: IBUPROFEN 600 MG TABLET (FP) PO PRN (12:20)
[2023-09-13] MEDS: THIAMINE HCL 100 MG TABLET (FP) PO SCH (21:29)
[2023-09-13] MEDS: QUEtiapine FUMARATE 100 MG TABLET (FP) PO SCH (21:30)
[2023-09-13] MEDS: LIDOCAINE PATCH REMOVAL MC SCH (21:30)
[2023-09-14] MEDS: PRENATAL VITAMINS W/ FOLIC ACID TABLET (FP) PO SCH (09:59)
[2023-09-14] MEDS: METHOCARBAMOL 500 MG TABLET PO SCH ×2 (09:59→21:13)
[2023-09-14] MEDS: IBUPROFEN 600 MG TABLET (FP) PO PRN ×2 (10:00→17:06)
[2023-09-14] MEDS: hydrOXYzine PAMOATE 25 MG CAPSULE (FP) PO PRN (10:01)
[2023-09-14] MEDS: LIDOCAINE 4% PATCH TP SCH (10:01)
[2023-09-14] MEDS: THIAMINE HCL 100 MG TABLET (FP) PO SCH (21:12)
[2023-09-14] MEDS: LIDOCAINE PATCH REMOVAL MC SCH (21:13)
[2023-09-14] MEDS: QUEtiapine FUMARATE 100 MG TABLET (FP) PO SCH (21:27)
[2023-09-15] MEDS: PRENATAL VITAMINS W/ FOLIC ACID TABLET (FP) PO SCH (10:07)
[2023-09-15] MEDS: METHOCARBAMOL 500 MG TABLET PO SCH ×2 (10:07→21:27)
[2023-09-15] MEDS: hydrOXYzine PAMOATE 25 MG CAPSULE (FP) PO PRN ×2 (10:07→21:27)
[2023-09-15] MEDS: NICOTINE POLACRILEX 4 MG GUM BUC PRN (10:08)
[2023-09-15] MEDS: LIDOCAINE 4% PATCH TP SCH (10:08)
[2023-09-15] MEDS: IBUPROFEN 600 MG TABLET (FP) PO PRN (12:38)
[2023-09-15] MEDS: QUEtiapine FUMARATE 100 MG TABLET (FP) PO SCH (21:27)
[2023-09-15] MEDS: THIAMINE HCL 100 MG TABLET (FP) PO SCH (21:27)
[2023-09-15] MEDS: LIDOCAINE PATCH REMOVAL MC SCH (21:27)
[2023-09-16] MEDS: METHOCARBAMOL 500 MG TABLET PO SCH ×2 (09:25→21:23)
[2023-09-16] MEDS: LIDOCAINE 4% PATCH TP SCH (09:25)
[2023-09-16] MEDS: PRENATAL VITAMINS W/ FOLIC ACID TABLET (FP) PO SCH (09:26)
[2023-09-16] MEDS: hydrOXYzine PAMOATE 25 MG CAPSULE (FP) PO PRN ×2 (09:26→21:23)
[2023-09-16] MEDS: IBUPROFEN 600 MG TABLET (FP) PO PRN ×2 (14:38→21:23)
[2023-09-16] MEDS: THIAMINE HCL 100 MG TABLET (FP) PO SCH (21:22)
[2023-09-16] MEDS: LIDOCAINE PATCH REMOVAL MC SCH (21:23)
[2023-09-16] MEDS: QUEtiapine FUMARATE 100 MG TABLET (FP) PO SCH (21:24)
[2023-09-17] MEDS: LIDOCAINE 4% PATCH TP SCH (09:34)
[2023-09-17] MEDS: METHOCARBAMOL 500 MG TABLET PO SCH ×2 (09:34→21:16)
[2023-09-17] MEDS: PRENATAL VITAMINS W/ FOLIC ACID TABLET (FP) PO SCH (09:34)
[2023-09-17] MEDS: IBUPROFEN 600 MG TABLET (FP) PO PRN ×3 (09:35→21:17)
[2023-09-17] MEDS: hydrOXYzine PAMOATE 25 MG CAPSULE (FP) PO PRN ×2 (09:36→21:18)
[2023-09-17] MEDS: QUEtiapine FUMARATE 100 MG TABLET (FP) PO SCH (21:16)
[2023-09-17] MEDS: LIDOCAINE PATCH REMOVAL MC SCH (21:16)
[2023-09-17] MEDS: THIAMINE HCL 100 MG TABLET (FP) PO SCH (21:16)
[2023-09-18] MEDS: IBUPROFEN 400 MG TABLET (FP) PO PRN (06:13)
[2023-09-18] MEDS: METHOCARBAMOL 500 MG TABLET PO SCH ×2 (09:35→21:13)
[2023-09-18] MEDS: IBUPROFEN 600 MG TABLET (FP) PO PRN ×2 (09:35→16:57)
[2023-09-18] MEDS: PRENATAL VITAMINS W/ FOLIC ACID TABLET (FP) PO SCH (09:36)
[2023-09-18] MEDS: LIDOCAINE 4% PATCH TP SCH (09:43)
[2023-09-18] MEDS: METHYL SALICYLATE/MENTHOL OINT 30 GM TUBE TP PRN (19:23)
[2023-09-18] MEDS: THIAMINE HCL 100 MG TABLET (FP) PO SCH (21:13)
[2023-09-18] MEDS: traZODone HCL 50 MG TABLET (FP) PO SCH (21:13)
[2023-09-18] MEDS: LIDOCAINE PATCH REMOVAL MC SCH (21:14)
[2023-09-19] MEDS: hydrOXYzine PAMOATE 25 MG CAPSULE (FP) PO PRN ×2 (06:09→21:16)
[2023-09-19] MEDS: NICOTINE POLACRILEX 4 MG GUM BUC PRN (06:09)
[2023-09-19] MEDS: IBUPROFEN 600 MG TABLET (FP) PO PRN ×3 (06:10→21:17)
[2023-09-19] MEDS: PRENATAL VITAMINS W/ FOLIC ACID TABLET (FP) PO SCH (09:42)
[2023-09-19] MEDS: LIDOCAINE 4% PATCH TP SCH (09:42)
[2023-09-19] MEDS: METHOCARBAMOL 500 MG TABLET PO SCH ×2 (09:42→21:16)
[2023-09-19] MEDS: traZODone HCL 50 MG TABLET (FP) PO SCH (21:16)
[2023-09-19] MEDS: THIAMINE HCL 100 MG TABLET (FP) PO SCH (21:16)
[2023-09-19] MEDS: LIDOCAINE PATCH REMOVAL MC SCH (21:16)
[2023-09-20] MEDS: IBUPROFEN 600 MG TABLET (FP) PO PRN ×2 (06:16→21:11)
[2023-09-20] MEDS: PRENATAL VITAMINS W/ FOLIC ACID TABLET (FP) PO SCH (09:44)
[2023-09-20] MEDS: LIDOCAINE 4% PATCH TP SCH (09:44)
[2023-09-20] MEDS: METHOCARBAMOL 500 MG TABLET PO SCH ×2 (09:44→21:11)
[2023-09-20] MEDS: METHYL SALICYLATE/MENTHOL OINT 30 GM TUBE TP PRN (09:44)
[2023-09-20] MEDS: hydrOXYzine PAMOATE 25 MG CAPSULE (FP) PO PRN ×2 (09:44→21:11)
[2023-09-20] MEDS: IBUPROFEN 400 MG TABLET (FP) PO PRN (12:13)
[2023-09-20] MEDS: LIDOCAINE PATCH REMOVAL MC SCH (21:10)
[2023-09-20] MEDS: traZODone HCL 50 MG TABLET (FP) PO SCH (21:11)
[2023-09-20] MEDS: THIAMINE HCL 100 MG TABLET (FP) PO SCH (21:11)
[2023-09-21] MEDS: IBUPROFEN 600 MG TABLET (FP) PO PRN (06:21)
[2023-09-21 06:40] VITALS: BP 128/84; PULSE 58; RESP 18; TEMP 97.1
[2023-09-21] MEDS: LIDOCAINE 4% PATCH TP SCH (09:07)
[2023-09-21] MEDS: NICOTINE POLACRILEX 4 MG GUM BUC PRN (09:08)
[2023-09-21] MEDS: METHOCARBAMOL 500 MG TABLET PO SCH (09:08)
[2023-09-21] MEDS: PRENATAL VITAMINS W/ FOLIC ACID TABLET (FP) PO SCH (09:08)
== END 2023-09-21 09:20 | disposition home or self-care (01) | DRG 772 ==
LOC: YASAS 15:12 → Y3E 15:14
PROVIDERS: ADMIT Allergy & Immunology; ATTEND Psychiatry & Neurology Pain Medicine
PROC: HZ42ZZZ Group Counseling for Substance Abuse Treatment, Cognitive-Behavioral (ICD-10-PCS; principal; 2023-08-25)
DX: F10.20 Alcohol dependence, uncomplicated (principal); F11.20 Opioid dependence, uncomplicated; F14.20 Cocaine dependence, uncomplicated; F17.210 Nicotine dependence, cigarettes, uncomplicated; F31.9 Bipolar disorder, unspecified; F41.9 Anxiety disorder, unspecified; E72.20 Disorder of urea cycle metabolism, unspecified; M62.830 Muscle spasm of back
CPT/HCPCS: 36415; 82140; 86803; 90677; 90686; G0008

== ENCOUNTER 2024-02-03 08:10 | Inpatient (IN) | payer OTHER ==
[2024-02-03 08:41] VITALS: BMI 29.8
[2024-02-03] MEDS ORDERED: BENZOCAINE/MENTHOL (CHLORASEPTIC ) LOZENGE MM PRN (10:10)
[2024-02-03] MEDS ORDERED: BENZONATATE 200 MG CAPSULE PO PRN (10:10)
[2024-02-03] MEDS ORDERED: LOPERAMIDE HCL 2 MG CAPSULE PO PRN (10:10)
[2024-02-03] MEDS ORDERED: NALOXONE HCL 0.4 MG/ML VIAL IM PRN (10:10)
[2024-02-03] MEDS ORDERED: BISMUTH SUBSALICYLATE 524 MG/30 ML PO PRN (10:10)
[2024-02-03] MEDS ORDERED: NALOXONE HCL (KLOXXADO) 8 MG SPRAY NS PRN (10:10)
[2024-02-03] MEDS ORDERED: POLYETHYLENE GLYCOL (HEALTHYLAX) 3350 17 GM PACKET PO PRN (10:10)
[2024-02-03] MEDS ORDERED: ONDANSETRON *ODT* 4 MG TABLET SL PRN (10:10)
[2024-02-03] MEDS ORDERED: DICYCLOMINE HCL 10 MG CAPSULE PO PRN (10:10)
[2024-02-03] MEDS ORDERED: IBUPROFEN 400 MG TABLET (FP) PO PRN (10:10)
[2024-02-03] MEDS ORDERED: methaDONE HCL 10 MG TABLET PO SCH (15:00)
[2024-02-03] MEDS: diazePAM 5 MG TABLET PO SCH (17:37)
[2024-02-03] MEDS: MELATONIN 5 MG TABLETS PO SCH (22:42)
[2024-02-03] MEDS: THIAMINE 100 MG TABLET PO SCH (22:42)
[2024-02-03] MEDS: guaiFENesin 600 MG TABLET.ER (FP) PO PRN (22:45)
[2024-02-04] MEDS: PRENATAL VITAMINS W/ FOLIC ACID TABLET (FP) PO SCH (09:59)
[2024-02-04] MEDS: IBUPROFEN 600 MG TABLET (FP) PO PRN (10:01)
[2024-02-04 10:46] LABS: POTASSIUM 3.1 mmol/L (3.5-5.1)
[2024-02-04 10:48] LABS: BLOOD UREA NITROGEN 28.2 mg/dL (7-18); CALCIUM 8.5 mg/dL (8.5-10.1)
[2024-02-04 10:52] LABS: CREATININE 0.8 mg/dL (0.55-1.3); HEMATOCRIT 33.7 % (35.4-49); HEMOGLOBIN 11.6 GM/dL (11.7-16.9); MCH 31.7 pg (25.7-33.7); MCHC 34.5 g/dl (32.0-35.9); MEAN CELL VOLUME 91.8 fl (80-96); MEAN PLT VOLUME 9.3 fl (7.5-11.1); PLATELET COUNT 252 10^3/uL (134-434); RBC 3.67 M/mm3 (4.00-5.60); RDW 14.2 % (11.9-15.9); WHITE BLOOD COUNT 8.4 K/mm3 (4.0-10.0)
[2024-02-04 10:53] LABS: TOT PROT 6.1 g/dl (6.4-8.2)
[2024-02-04 10:54] LABS: BILIRUBIN,TOTAL 0.5 mg/dL (0.2-1)
[2024-02-04] MEDS: ACETAMINOPHEN 325 MG TABLET (FP) PO PRN (17:45)
[2024-02-04] MEDS: QUEtiapine FUMARATE 50 MG TABLET PO SCH (22:43)
[2024-02-05] MEDS: hydrOXYzine PAMOATE 25 MG CAPSULE (FP) PO PRN (00:49)
[2024-02-05] MEDS: MAGNESIUM HYDROX 2400MG/30ML ORAL SUSPENSION 30 ML CUP PO PRN (00:49)
[2024-02-05] MEDS: diazePAM 5 MG TABLET PO SCH (05:58)
[2024-02-05] MEDS: POTASSIUM CHLORIDE ORAL LIQUID 20 MEQ/15 ML PO SCH (10:18)
[2024-02-05] MEDS: diazePAM 5 MG TABLET PO PRN (20:05)
[2024-02-05] MEDS: MAG HYDROX/AL HYDROX/SIMETH 30 ML UNIT-DOSE CUP PO PRN (22:15)
[2024-02-06] MEDS: diazePAM 5 MG TABLET PO SCH (05:36)
[2024-02-06] MEDS: METHOCARBAMOL 500 MG TABLET PO PRN (09:27)
[2024-02-07] MEDS: diazePAM 5 MG TABLET PO ONE (05:57)
[2024-02-07 06:37] VITALS: RESP 16
[2024-02-07 09:11] VITALS: BP 141/87; PULSE 79; TEMP 97.3
== END 2024-02-07 09:50 | disposition other institution (70) | DRG 773 ==
LOC: YASAS 08:10 → Y6N 10:42
PROVIDERS: ADMIT Allergy & Immunology; ATTEND Surgery
PROC: HZ2ZZZZ Detoxification Services for Substance Abuse Treatment (ICD-10-PCS; principal; 2024-02-03)
DX: F10.230 Alcohol dependence with withdrawal, uncomplicated (principal); F11.20 Opioid dependence, uncomplicated; F12.20 Cannabis dependence, uncomplicated; F31.9 Bipolar disorder, unspecified; F19.282 Other psychoactive substance dependence with psychoactive substance-induced sleep disorder; F41.9 Anxiety disorder, unspecified; E87.6 Hypokalemia; J45.909 Unspecified asthma, uncomplicated; M54.50 Low back pain, unspecified; G89.29 Other chronic pain; M19.041 Primary osteoarthritis, right hand; M19.042 Primary osteoarthritis, left hand; Z62.810 Personal history of physical and sexual abuse in childhood; Z63.8 Other specified problems related to primary support group
CPT/HCPCS: 36415; 80053; 80305; 80307; 84132; 85027; 86780; 93005; 93010

== ENCOUNTER 2024-04-09 09:04 | Inpatient (IN) | payer OTHER ==
[2024-04-09 10:10] VITALS: BMI 29.8
[2024-04-09] MEDS ORDERED: BENZOCAINE/MENTHOL (CHLORASEPTIC ) LOZENGE MM PRN (11:06)
[2024-04-09] MEDS ORDERED: ACETAMINOPHEN 325 MG TABLET (FP) PO PRN (11:06)
[2024-04-09] MEDS ORDERED: ONDANSETRON *ODT* 4 MG TABLET SL PRN (11:06)
[2024-04-09] MEDS ORDERED: NALOXONE HCL 0.4 MG/ML VIAL IM PRN (11:06)
[2024-04-09] MEDS ORDERED: NICOTINE POLACRILEX 2 MG GUM BUC PRN (11:06)
[2024-04-09] MEDS ORDERED: hydrOXYzine PAMOATE 25 MG CAPSULE (FP) PO PRN (11:06)
[2024-04-09] MEDS ORDERED: IBUPROFEN 400 MG TABLET (FP) PO PRN (11:06)
[2024-04-09] MEDS ORDERED: NALOXONE (NARCAN) HCL 4 MG/0.1 ML SPRAY NS PRN (11:06)
[2024-04-09] MEDS ORDERED: MAG HYDROX/AL HYDROX/SIMETH 30 ML UNIT-DOSE CUP PO PRN (11:06)
[2024-04-09] MEDS ORDERED: LOPERAMIDE HCL 2 MG CAPSULE PO PRN (11:06)
[2024-04-09] MEDS ORDERED: guaiFENesin 600 MG TABLET.ER (FP) PO PRN (11:06)
[2024-04-09] MEDS ORDERED: POLYETHYLENE GLYCOL (HEALTHYLAX) 3350 17 GM PACKET PO PRN (11:06)
[2024-04-09] MEDS ORDERED: BISMUTH SUBSALICYLATE 262 MG/15 ML BTL PO PRN (11:06)
[2024-04-09] MEDS ORDERED: BENZONATATE 200 MG CAPSULE PO PRN (11:06)
[2024-04-09] MEDS ORDERED: METHOCARBAMOL 500 MG TABLET PO PRN (11:06)
[2024-04-09] MEDS ORDERED: MAGNESIUM HYDROX 2400MG/30ML ORAL SUSPENSION 30 ML CUP PO PRN (11:06)
[2024-04-09] MEDS ORDERED: IBUPROFEN 600 MG TABLET (FP) PO PRN (11:06)
[2024-04-09] MEDS ORDERED: DICYCLOMINE HCL 10 MG CAPSULE PO PRN (11:06)
[2024-04-09] MEDS ORDERED: methaDONE HCL 10 MG TABLET PO ONE (14:23)
[2024-04-09] MEDS: diazePAM 5 MG TABLET PO SCH (16:56)
[2024-04-09] MEDS: QUEtiapine FUMARATE 50 MG TABLET PO SCH (22:59)
[2024-04-09] MEDS: MELATONIN 5 MG TABLETS PO SCH (22:59)
[2024-04-09] MEDS: THIAMINE 100 MG TABLET PO SCH (23:00)
[2024-04-10] MEDS: diazePAM 5 MG TABLET PO SCH (05:43)
[2024-04-10] MEDS ORDERED: methaDONE HCL 40 MG DISPERSABLE TABLET PO SCH (06:00)
[2024-04-10] MEDS: PRENATAL VITAMINS W/ FOLIC ACID TABLET (FP) PO SCH (10:27)
[2024-04-10] MEDS: NICOTINE 14 MG/24 HOURS TOPICAL PATCH TD SCH (10:28)
[2024-04-10 12:17] LABS: HEMATOCRIT 35.6 % (35.4-49); HEMOGLOBIN 12.2 GM/dL (11.7-16.9); MCHC 34.4 g/dl (32.0-35.9); MEAN CELL VOLUME 90.3 fl (80-96); MEAN PLT VOLUME 9.7 fl (7.5-11.1); PLATELET COUNT 193 10^3/uL (134-434); RBC 3.94 M/mm3 (4.00-5.60)
[2024-04-10 12:18] LABS: POTASSIUM 4.2 mmol/L (3.5-5.1)
[2024-04-10 12:21] LABS: ALBUMIN 4.2 g/dl (3.4-5.0); BLOOD UREA NITROGEN 26.8 mg/dL (7-18); CALCIUM 9.2 mg/dL (8.5-10.1)
[2024-04-10 12:26] LABS: BILIRUBIN,TOTAL 0.6 mg/dL (0.2-1); TOT PROT 7.5 g/dl (6.4-8.2)
[2024-04-11] MEDS: diazePAM 5 MG TABLET PO SCH (06:18)
[2024-04-12] MEDS: diazePAM 5 MG TABLET PO ONE (06:19)
[2024-04-12 17:14] VITALS: TEMP 96.9
[2024-04-12 20:40] VITALS: BP 139/92; PULSE 82; RESP 18
== END 2024-04-12 20:47 | disposition left against medical advice (07) | DRG 770 ==
LOC: YASAS 09:04 → Y6N 11:53
PROVIDERS: ADMIT Allergy & Immunology; ATTEND Surgery
PROC: HZ2ZZZZ Detoxification Services for Substance Abuse Treatment (ICD-10-PCS; principal; 2024-04-09)
DX: F10.230 Alcohol dependence with withdrawal, uncomplicated (principal); F11.20 Opioid dependence, uncomplicated; F14.20 Cocaine dependence, uncomplicated; F17.210 Nicotine dependence, cigarettes, uncomplicated; F25.1 Schizoaffective disorder, depressive type; F19.282 Other psychoactive substance dependence with psychoactive substance-induced sleep disorder; F39 Unspecified mood [affective] disorder; J45.909 Unspecified asthma, uncomplicated; K21.9 Gastro-esophageal reflux disease without esophagitis; M54.50 Low back pain, unspecified; G89.29 Other chronic pain; R73.9 Hyperglycemia, unspecified; R79.89 Other specified abnormal findings of blood chemistry; Z62.810 Personal history of physical and sexual abuse in childhood; F91.8 Other conduct disorders; Z91.199 Patient's noncompliance with other medical treatment and regimen due to unspecified reason
CPT/HCPCS: 36415; 80053; 80305; 80307; 83036; 84520; 85027; 86780; 93005; 93010

== ENCOUNTER 2024-09-01 15:11 | Inpatient (IN) | payer OTHER ==
[2024-09-01 16:26] VITALS: BMI 27.4
[2024-09-01] MEDS ORDERED: LOPERAMIDE HCL 2 MG CAPSULE PO PRN (16:55)
[2024-09-01] MEDS ORDERED: NICOTINE POLACRILEX 2 MG LOZENGE BC PRN (16:55)
[2024-09-01] MEDS ORDERED: MAG HYDROX/AL HYDROX/SIMETH 30 ML UNIT-DOSE CUP PO PRN (16:55)
[2024-09-01] MEDS ORDERED: DICYCLOMINE HCL 10 MG CAPSULE PO PRN (16:55)
[2024-09-01] MEDS ORDERED: NICOTINE POLACRILEX 2 MG GUM BUC PRN (16:55)
[2024-09-01] MEDS ORDERED: MAGNESIUM HYDROX 2400MG/30ML ORAL SUSPENSION 30 ML CUP PO PRN (16:55)
[2024-09-01] MEDS ORDERED: BISMUTH SUBSALICYLATE 524 MG/30 ML PO PRN (16:55)
[2024-09-01] MEDS ORDERED: IBUPROFEN 400 MG TABLET (FP) PO PRN (16:55)
[2024-09-01] MEDS ORDERED: P-EPHED 60MG/TRIPROLIDI 2.5MG TABLET PO PRN (16:55)
[2024-09-01] MEDS ORDERED: ACETAMINOPHEN 325 MG TABLET (FP) PO PRN (16:55)
[2024-09-01] MEDS ORDERED: ONDANSETRON *ODT* 4 MG TABLET SL PRN (16:55)
[2024-09-01] MEDS ORDERED: NALOXONE (NARCAN) HCL 4 MG/0.1 ML SPRAY NS PRN (16:55)
[2024-09-01] MEDS ORDERED: guaiFENesin 600 MG TABLET.ER (FP) PO PRN (16:55)
[2024-09-01] MEDS ORDERED: POLYETHYLENE GLYCOL (HEALTHYLAX) 3350 17 GM PACKET PO PRN (16:55)
[2024-09-01] MEDS ORDERED: BENZOCAINE/MENTHOL (CHLORASEPTIC ) LOZENGE MM PRN (16:55)
[2024-09-01] MEDS ORDERED: BENZONATATE 200 MG CAPSULE PO PRN (16:55)
[2024-09-01] MEDS: THIAMINE 100 MG TABLET PO SCH (22:41)
[2024-09-01] MEDS: MELATONIN 5 MG TABLETS PO SCH (22:41)
[2024-09-01] MEDS: METHOCARBAMOL 500 MG TABLET PO PRN (22:41)
[2024-09-02] MEDS ORDERED: methaDONE HCL 40 MG DISPERSABLE TABLET PO SCH (06:00)
[2024-09-02] MEDS: PRENATAL VITAMINS W/ FOLIC ACID TABLET (FP) PO SCH (09:08)
[2024-09-02] MEDS: chlordiazePOXIDE HCL 25 MG CAPSULE PO SCH (10:25)
[2024-09-02 11:12] LABS: HEMATOCRIT 34.2 % (35.4-49); HEMOGLOBIN 11.7 GM/dL (11.7-16.9); MCH 30.8 pg (25.7-33.7); MCHC 34.1 g/dl (32.0-35.9); MEAN CELL VOLUME 90.4 fl (80-96); MEAN PLT VOLUME 9.3 fl (7.5-11.1); PLATELET COUNT 182 10^3/uL (134-434); POTASSIUM 3.5 mmol/L (3.5-5.1); RBC 3.79 M/mm3 (4.00-5.60); RDW 14.3 % (11.9-15.9); WHITE BLOOD COUNT 7.3 K/mm3 (4.0-10.0)
[2024-09-02 11:17] LABS: ALBUMIN 3.8 g/dl (3.4-5.0); BLOOD UREA NITROGEN 25.5 mg/dL (7-18); CALCIUM 9.2 mg/dL (8.5-10.1)
[2024-09-02 11:20] LABS: CREATININE 0.7 mg/dL (0.55-1.3)
[2024-09-02 11:22] LABS: TOT PROT 6.6 g/dl (6.4-8.2)
[2024-09-02 11:24] LABS: BILIRUBIN,TOTAL 0.9 mg/dL (0.2-1)
[2024-09-02] MEDS: chlordiazePOXIDE HCL 25 MG CAPSULE PO PRN (14:57)
[2024-09-02] MEDS: traZODone HCL 50 MG TABLET (FP) PO SCH (22:14)
[2024-09-03 08:55] VITALS: BP 108/66; PULSE 70; RESP 17; TEMP 97.7
[2024-09-03] MEDS: IBUPROFEN 600 MG TABLET (FP) PO PRN (10:21)
[2024-09-03] MEDS ORDERED: ALBUTEROL SO4 HFA INHALER IH PRN (11:34)
[2024-09-04] MEDS ORDERED: chlordiazePOXIDE HCL 25 MG CAPSULE PO SCH (05:00)
[2024-09-05] MEDS ORDERED: chlordiazePOXIDE HCL 10 MG CAPSULE PO PRN
[2024-09-05] MEDS ORDERED: chlordiazePOXIDE HCL 10 MG CAPSULE PO SCH (05:00)
[2024-09-06] MEDS ORDERED: chlordiazePOXIDE HCL 10 MG CAPSULE PO SCH (05:00)
[2024-09-07] MEDS ORDERED: chlordiazePOXIDE HCL 10 MG CAPSULE PO ONE (05:00)
== END 2024-09-03 12:05 | disposition home or self-care (01) | DRG 773 ==
LOC: YASAS 15:11 → Y6N 17:00
PROVIDERS: ADMIT Allergy & Immunology; ATTEND Surgery
PROC: HZ2ZZZZ Detoxification Services for Substance Abuse Treatment (ICD-10-PCS; principal; 2024-09-01)
DX: F10.230 Alcohol dependence with withdrawal, uncomplicated (principal); F14.20 Cocaine dependence, uncomplicated; F11.20 Opioid dependence, uncomplicated; F17.210 Nicotine dependence, cigarettes, uncomplicated; F25.9 Schizoaffective disorder, unspecified; F31.9 Bipolar disorder, unspecified; F19.282 Other psychoactive substance dependence with psychoactive substance-induced sleep disorder; F19.280 Other psychoactive substance dependence with psychoactive substance-induced anxiety disorder; J45.909 Unspecified asthma, uncomplicated; M54.50 Low back pain, unspecified; G89.29 Other chronic pain; Z62.810 Personal history of physical and sexual abuse in childhood; Z63.8 Other specified problems related to primary support group
CPT/HCPCS: 36415; 80053; 80305; 80307; 85027; 86780

== ENCOUNTER 2024-09-16 12:13 | Inpatient (IN) | payer OTHER ==
[2024-09-16 12:39] VITALS: BMI 28.7
[2024-09-16] MEDS ORDERED: ACETAMINOPHEN 325 MG TABLET (FP) PO PRN (13:01)
[2024-09-16] MEDS ORDERED: BENZONATATE 200 MG CAPSULE PO PRN (13:01)
[2024-09-16] MEDS ORDERED: MAGNESIUM HYDROX 2400MG/30ML ORAL SUSPENSION 30 ML CUP PO PRN (13:01)
[2024-09-16] MEDS ORDERED: BENZOCAINE/MENTHOL (CHLORASEPTIC ) LOZENGE MM PRN (13:01)
[2024-09-16] MEDS ORDERED: guaiFENesin 600 MG TABLET.ER (FP) PO PRN (13:01)
[2024-09-16] MEDS ORDERED: LOPERAMIDE HCL 2 MG CAPSULE PO PRN (13:01)
[2024-09-16] MEDS ORDERED: IBUPROFEN 600 MG TABLET (FP) PO PRN (13:01)
[2024-09-16] MEDS ORDERED: hydrOXYzine PAMOATE 25 MG CAPSULE (FP) PO PRN (13:01)
[2024-09-16] MEDS ORDERED: NICOTINE POLACRILEX 2 MG GUM BUC PRN (13:01)
[2024-09-16] MEDS ORDERED: IBUPROFEN 400 MG TABLET (FP) PO PRN (13:01)
[2024-09-16] MEDS ORDERED: NALOXONE (NARCAN) HCL 4 MG/0.1 ML SPRAY NS PRN (13:01)
[2024-09-16] MEDS ORDERED: MAG HYDROX/AL HYDROX/SIMETH 30 ML UNIT-DOSE CUP PO PRN (13:01)
[2024-09-16] MEDS ORDERED: POLYETHYLENE GLYCOL (HEALTHYLAX) 3350 17 GM PACKET PO PRN (13:01)
[2024-09-16] MEDS ORDERED: ALBUTEROL SO4 HFA INHALER IH PRN (14:58)
[2024-09-16] MEDS: methaDONE HCL 10 MG TABLET PO ONE (15:59)
[2024-09-16] MEDS: cloNIDine HCL 0.1 MG TABLET PO SCH (18:25)
[2024-09-16] MEDS: MELATONIN 5 MG TABLETS PO SCH (21:21)
[2024-09-16] MEDS: THIAMINE 100 MG TABLET PO SCH (21:21)
[2024-09-16] MEDS ORDERED: TUBERCULIN PPD 5 TU/0.1ML VIAL ID ONE (21:42)
[2024-09-17] MEDS: NICOTINE 14 MG/24 HOURS TOPICAL PATCH TD SCH (10:06)
[2024-09-17] MEDS: PRENATAL VITAMINS W/ FOLIC ACID TABLET (FP) PO SCH (10:06)
[2024-09-17] MEDS: methaDONE HCL 10 MG TABLET PO ONE (10:08)
[2024-09-17 12:26] LABS: HEMATOCRIT 35.7 % (35.4-49); HEMOGLOBIN 11.9 GM/dL (11.7-16.9); MCHC 33.4 g/dl (32.0-35.9); MEAN CELL VOLUME 92.6 fl (80-96); MEAN PLT VOLUME 8.6 fl (7.5-11.1); PLATELET COUNT 255 10^3/uL (134-434); RBC 3.86 M/mm3 (4.00-5.60); RDW 15.1 % (11.9-15.9); WHITE BLOOD COUNT 5.4 K/mm3 (4.0-10.0)
[2024-09-17 12:31] LABS: POTASSIUM 3.9 mmol/L (3.5-5.1)
[2024-09-17 12:39] LABS: BLOOD UREA NITROGEN 19.6 mg/dL (7-18); CALCIUM 8.8 mg/dL (8.5-10.1)
[2024-09-17 12:43] LABS: CREATININE 0.6 mg/dL (0.55-1.3)
[2024-09-17 12:45] LABS: BILIRUBIN,TOTAL 0.1 mg/dL (0.2-1); TOT PROT 5.8 g/dl (6.4-8.2)
[2024-09-17 12:58] LABS: SYPHILIS W/ RPR CONF NON-REACTIVE (NONREACTIVE)
[2024-09-17] MEDS: traZODone HCL 50 MG TABLET (FP) PO SCH (21:39)
[2024-09-17 21:47] VITALS: RESP 18
[2024-09-18] MEDS ORDERED: cloNIDine HCL 0.1 MG TABLET PO PRN
[2024-09-18 07:14] VITALS: BP 112/75; PULSE 72; TEMP 97.7
[2024-09-18] MEDS: methaDONE 80 MG, methaDONE 10 MG PO SCH (09:45)
[2024-09-18] MEDS ORDERED: methaDONE HCL 10 MG TABLET PO ONE (10:00)
[2024-09-18] MEDS ORDERED: methaDONE HCL 40 MG DISPERSABLE TABLET PO SCH (10:00)
[2024-09-18] MEDS: NALOXONE (NYS OPIOID OVERDOSE PROGRAM) 4 MG/0.1 ML SPRAY NS SCH (16:00)
[2024-09-19] MEDS ORDERED: methaDONE HCL 40 MG DISPERSABLE TABLET PO ONE (10:00)
[2024-09-20] MEDS ORDERED: methaDONE 40 MG, methaDONE 10 MG PO ONE (10:00)
[2024-09-21] MEDS ORDERED: methaDONE HCL 40 MG DISPERSABLE TABLET PO ONE (10:00)
[2024-09-21] MEDS ORDERED: methaDONE 40 MG, methaDONE 10 MG PO ONE (10:00)
== END 2024-09-18 15:50 | disposition home or self-care (01) | DRG 772 ==
LOC: YASAS 12:13 → Y5N 15:09
PROVIDERS: ADMIT Psychiatry & Neurology Pain Medicine; ATTEND Psychiatry & Neurology Pain Medicine
PROC: HZ42ZZZ Group Counseling for Substance Abuse Treatment, Cognitive-Behavioral (ICD-10-PCS; principal; 2024-09-16)
DX: F11.20 Opioid dependence, uncomplicated (principal); F10.20 Alcohol dependence, uncomplicated; F14.20 Cocaine dependence, uncomplicated; F17.210 Nicotine dependence, cigarettes, uncomplicated; F19.282 Other psychoactive substance dependence with psychoactive substance-induced sleep disorder; F19.24 Other psychoactive substance dependence with psychoactive substance-induced mood disorder; F32.A Depression, unspecified; J45.909 Unspecified asthma, uncomplicated; K21.9 Gastro-esophageal reflux disease without esophagitis; M54.50 Low back pain, unspecified; G89.29 Other chronic pain
CPT/HCPCS: 36415; 80053; 85027; 86780; 86803; 93005; 93010

== ENCOUNTER 2024-11-09 19:28 | Inpatient (IN) | payer OTHER ==
[2024-11-09 19:50] VITALS: BMI 29.6
[2024-11-09] MEDS ORDERED: hydrOXYzine PAMOATE 25 MG CAPSULE (FP) PO PRN (20:45)
[2024-11-09] MEDS ORDERED: NICOTINE POLACRILEX 4 MG GUM BUC PRN (20:45)
[2024-11-09] MEDS ORDERED: guaiFENesin 600 MG TABLET.ER (FP) PO PRN (20:45)
[2024-11-09] MEDS ORDERED: POLYETHYLENE GLYCOL (HEALTHYLAX) 3350 17 GM PACKET PO PRN (20:45)
[2024-11-09] MEDS ORDERED: DICYCLOMINE HCL 10 MG CAPSULE PO PRN (20:45)
[2024-11-09] MEDS ORDERED: NALOXONE (NARCAN) HCL 4 MG/0.1 ML SPRAY NS PRN (20:45)
[2024-11-09] MEDS ORDERED: LOPERAMIDE HCL 2 MG CAPSULE PO PRN (20:45)
[2024-11-09] MEDS ORDERED: BISMUTH SUBSALICYLATE 524 MG/30 ML PO PRN (20:45)
[2024-11-09] MEDS ORDERED: MAGNESIUM HYDROX 2400MG/30ML ORAL SUSPENSION 30 ML CUP PO PRN (20:45)
[2024-11-09] MEDS ORDERED: BENZONATATE 200 MG CAPSULE PO PRN (20:45)
[2024-11-09] MEDS ORDERED: IBUPROFEN 400 MG TABLET (FP) PO PRN (20:45)
[2024-11-09] MEDS ORDERED: BENZOCAINE/MENTHOL (CHLORASEPTIC ) LOZENGE MM PRN (20:45)
[2024-11-09] MEDS ORDERED: ONDANSETRON *ODT* 4 MG TABLET SL PRN (20:45)
[2024-11-09] MEDS: MELATONIN 5 MG TABLETS PO SCH (22:16)
[2024-11-09] MEDS: THIAMINE 100 MG TABLET PO SCH (22:16)
[2024-11-09] MEDS ORDERED: ALBUTEROL SO4 HFA INHALER IH PRN (22:49)
[2024-11-10 09:28] LABS: CHLORIDE 106 mmol/L (98-107); POTASSIUM 3.9 mmol/L (3.5-5.1); SODIUM 143 mmol/L (136-145)
[2024-11-10 09:29] LABS: HEMATOCRIT 35.3 % (35.4-49); HEMOGLOBIN 12.1 GM/dL (11.7-16.9); MCH 31.1 pg (25.7-33.7); MCHC 34.2 g/dl (32.0-35.9); MEAN CELL VOLUME 90.8 fl (80-96); MEAN PLT VOLUME 9.2 fl (7.5-11.1); PLATELET COUNT 197 10^3/uL (134-434); RBC 3.89 M/mm3 (4.00-5.60); RDW 13.8 % (11.9-15.9); WHITE BLOOD COUNT 7.6 K/mm3 (4.0-10.0)
[2024-11-10 09:32] LABS: ALBUMIN 3.8 g/dl (3.4-5.0); ANION GAP 7 mmol/L (4-13); BLOOD UREA NITROGEN 33.4 mg/dL (7-18); CALCIUM 8.8 mg/dL (8.5-10.1); CO2 30 mmol/L (21-32); GLUCOSE,RANDOM 83 mg/dL (74-106)
[2024-11-10 09:33] LABS: SGPT/ALT 31 U/L (13-61)
[2024-11-10 09:35] LABS: BILIRUBIN,TOTAL 0.6 mg/dL (0.2-1); CREATININE 0.7 mg/dL (0.55-1.3); SGOT/AST 64 U/L (15-37)
[2024-11-10 09:36] LABS: ALK PHOS 51 U/L (45-117)
[2024-11-10 09:37] LABS: TOT PROT 6.8 g/dl (6.4-8.2)
[2024-11-10] MEDS: methaDONE HCL 10 MG TABLET PO SCH (09:55)
[2024-11-10] MEDS: methaDONE HCL 40 MG DISPERSABLE TABLET PO ONE (10:05)
[2024-11-10] MEDS: PRENATAL VITAMINS W/ FOLIC ACID TABLET (FP) PO SCH (10:37)
[2024-11-10] MEDS: NICOTINE 14 MG/24 HOURS TOPICAL PATCH TD SCH (10:38)
[2024-11-10] MEDS: traZODone HCL 50 MG TABLET (FP) PO SCH (21:43)
[2024-11-10] MEDS: ACETAMINOPHEN 325 MG TABLET (FP) PO PRN (21:43)
[2024-11-10] MEDS: METHOCARBAMOL 500 MG TABLET PO PRN (21:45)
[2024-11-11] MEDS: cloNIDine HCL 0.1 MG TABLET PO SCH (10:00)
[2024-11-11] MEDS: methaDONE HCL 10 MG TABLET PO SCH (10:28)
[2024-11-11] MEDS: IBUPROFEN 600 MG TABLET (FP) PO PRN (17:10)
[2024-11-12] MEDS ORDERED: methaDONE HCL 10 MG TABLET PO SCH (09:30)
[2024-11-12] MEDS: methaDONE HCL 10 MG TABLET PO ONE (10:01)
[2024-11-13] MEDS ORDERED: cloNIDine HCL 0.1 MG TABLET PO PRN
[2024-11-13] MEDS: MAG HYDROX/AL HYDROX/SIMETH 30 ML UNIT-DOSE CUP PO PRN (05:44)
[2024-11-14] MEDS: methaDONE HCL 10 MG TABLET PO ONE (10:28)
[2024-11-15] MEDS ORDERED: methaDONE HCL 10 MG TABLET PO SCH (08:45)
[2024-11-15] MEDS: methaDONE HCL 10 MG TABLET PO ONE (13:51)
[2024-11-16 06:06] VITALS: RESP 16
[2024-11-16] MEDS: methaDONE HCL 10 MG TABLET PO ONE (09:54)
[2024-11-16] MEDS ORDERED: methaDONE HCL 10 MG TABLET PO ONE (10:00)
[2024-11-17 06:11] VITALS: BP 112/76; PULSE 79; TEMP 97.8
== END 2024-11-17 10:14 | disposition home or self-care (01) | DRG 773 ==
LOC: YASAS 19:28 → Y3N 20:34
PROVIDERS: ADMIT Allergy & Immunology; ATTEND Allergy & Immunology
PROC: HZ2ZZZZ Detoxification Services for Substance Abuse Treatment (ICD-10-PCS; principal; 2024-11-09)
DX: F11.23 Opioid dependence with withdrawal (principal); F10.230 Alcohol dependence with withdrawal, uncomplicated; F13.20 Sedative, hypnotic or anxiolytic dependence, uncomplicated; F14.20 Cocaine dependence, uncomplicated; F17.210 Nicotine dependence, cigarettes, uncomplicated; F19.24 Other psychoactive substance dependence with psychoactive substance-induced mood disorder; F31.9 Bipolar disorder, unspecified; F41.9 Anxiety disorder, unspecified; K21.9 Gastro-esophageal reflux disease without esophagitis; J45.20 Mild intermittent asthma, uncomplicated; M54.50 Low back pain, unspecified; G89.29 Other chronic pain
CPT/HCPCS: 36415; 80053; 80305; 80307; 85027; 86780; 93005; 93010

== ENCOUNTER 2025-01-13 19:20 | Inpatient (IN) | payer OTHER ==
[2025-01-13 19:59] VITALS: BMI 29.0
[2025-01-13] MEDS ORDERED: IBUPROFEN 400 MG TABLET (FP) PO PRN (21:00)
[2025-01-13] MEDS ORDERED: NICOTINE POLACRILEX 2 MG GUM BUC PRN (21:00)
[2025-01-13] MEDS ORDERED: MAGNESIUM HYDROX 2400MG/30ML ORAL SUSPENSION 30 ML CUP PO PRN (21:00)
[2025-01-13] MEDS ORDERED: POLYETHYLENE GLYCOL (HEALTHYLAX) 3350 17 GM PACKET PO PRN (21:00)
[2025-01-13] MEDS ORDERED: ONDANSETRON *ODT* 4 MG TABLET SL PRN (21:00)
[2025-01-13] MEDS ORDERED: guaiFENesin 600 MG TABLET.ER (FP) PO PRN (21:00)
[2025-01-13] MEDS ORDERED: BISMUTH SUBSALICYLATE 524 MG/30 ML PO PRN (21:00)
[2025-01-13] MEDS ORDERED: NALOXONE (NARCAN) HCL 4 MG/0.1 ML SPRAY NS PRN (21:00)
[2025-01-13] MEDS ORDERED: BENZONATATE 200 MG CAPSULE PO PRN (21:00)
[2025-01-13] MEDS ORDERED: IBUPROFEN 600 MG TABLET (FP) PO PRN (21:00)
[2025-01-13] MEDS ORDERED: DICYCLOMINE HCL 10 MG CAPSULE PO PRN (21:00)
[2025-01-13] MEDS ORDERED: BENZOCAINE/MENTHOL (CHLORASEPTIC ) LOZENGE MM PRN (21:00)
[2025-01-13] MEDS ORDERED: MAG HYDROX/AL HYDROX/SIMETH 30 ML UNIT-DOSE CUP PO PRN (21:00)
[2025-01-13] MEDS ORDERED: chlordiazePOXIDE HCL 25 MG CAPSULE PO PRN (21:04)
[2025-01-13] MEDS: hydrOXYzine PAMOATE 25 MG CAPSULE (FP) PO PRN (22:40)
[2025-01-13] MEDS: MELATONIN 5 MG TABLETS PO SCH (22:40)
[2025-01-13] MEDS: THIAMINE 100 MG TABLET PO SCH (22:40)
[2025-01-13] MEDS: chlordiazePOXIDE HCL 25 MG CAPSULE PO SCH (22:40)
[2025-01-13] MEDS: METHOCARBAMOL 500 MG TABLET PO PRN (22:40)
[2025-01-14] MEDS ORDERED: methaDONE HCL 10 MG TABLET PO ONE (09:03)
[2025-01-14] MEDS: PRENATAL VITAMINS W/ FOLIC ACID TABLET (FP) PO SCH (09:22)
[2025-01-14] MEDS: NICOTINE 14 MG/24 HOURS TOPICAL PATCH TD SCH (09:23)
[2025-01-14 11:36] LABS: HEMOGLOBIN 11.3 g/dL (13.7-17.5); MCHC 32.3 g/dl (32.3-36.5); MEAN CELL VOLUME 93.1 fl (79.0-92.2); MEAN PLT VOLUME 11.1 fl (9.4-12.4); PLATELET COUNT 233 x10^3/uL (163-337); RDW 13.5 % (12.2-16.1)
[2025-01-14 11:40] LABS: CHLORIDE 106 mmol/L (98-107); SODIUM 142 mmol/L (136-145)
[2025-01-14 11:50] LABS: CALCIUM 9.6 mg/dL (8.5-10.1)
[2025-01-14 11:51] LABS: ALBUMIN 3.3 g/dl (3.4-5.0); ANION GAP 6 mmol/L (4-13); BLOOD UREA NITROGEN 22.2 mg/dL (7-18); CO2 30 mmol/L (21-32); GLUCOSE,RANDOM 129 mg/dL (74-106)
[2025-01-14 11:54] LABS: BILIRUBIN,TOTAL 0.4 mg/dL (0.2-1); CREATININE 0.9 mg/dL (0.55-1.3); SGOT/AST 25 U/L (15-37); SGPT/ALT 28 U/L (13-61)
[2025-01-14 11:55] LABS: ALK PHOS 49 U/L (45-117); TOT PROT 6.1 g/dl (6.4-8.2)
[2025-01-14] MEDS: traZODone HCL 50 MG TABLET (FP) PO SCH (22:18)
[2025-01-15] MEDS: chlordiazePOXIDE HCL 25 MG CAPSULE PO SCH (06:00)
[2025-01-15] MEDS ORDERED: methaDONE HCL 10 MG TABLET PO ONE (10:00)
[2025-01-15] MEDS: ACETAMINOPHEN 325 MG TABLET (FP) PO PRN (22:21)
[2025-01-16] MEDS ORDERED: chlordiazePOXIDE HCL 10 MG CAPSULE PO PRN
[2025-01-16] MEDS: ALBUTEROL SO4 HFA INHALER IH PRN (05:38)
[2025-01-16] MEDS: chlordiazePOXIDE HCL 10 MG CAPSULE PO SCH (06:00)
[2025-01-16] MEDS ORDERED: methaDONE HCL 10 MG TABLET PO SCH (06:00)
[2025-01-16] MEDS: LOPERAMIDE HCL 2 MG CAPSULE PO PRN (14:58)
[2025-01-17] MEDS: chlordiazePOXIDE HCL 10 MG CAPSULE PO SCH (06:00)
[2025-01-18] MEDS: chlordiazePOXIDE HCL 10 MG CAPSULE PO ONE (05:57)
[2025-01-18 09:40] VITALS: BP 117/90; PULSE 69; RESP 16; TEMP 97.5
== END 2025-01-18 10:18 | disposition home or self-care (01) | DRG 773 ==
LOC: YASAS 19:20 → Y6N 22:02
PROVIDERS: ADMIT Allergy & Immunology; ATTEND Family Medicine Addiction Medicine
PROC: HZ2ZZZZ Detoxification Services for Substance Abuse Treatment (ICD-10-PCS; principal; 2025-01-13)
DX: F10.230 Alcohol dependence with withdrawal, uncomplicated (principal); F11.20 Opioid dependence, uncomplicated; F14.20 Cocaine dependence, uncomplicated; F17.210 Nicotine dependence, cigarettes, uncomplicated; F31.9 Bipolar disorder, unspecified; F19.282 Other psychoactive substance dependence with psychoactive substance-induced sleep disorder; F19.24 Other psychoactive substance dependence with psychoactive substance-induced mood disorder; F41.9 Anxiety disorder, unspecified; J45.20 Mild intermittent asthma, uncomplicated; K21.9 Gastro-esophageal reflux disease without esophagitis; M54.50 Low back pain, unspecified; G89.29 Other chronic pain; Z62.810 Personal history of physical and sexual abuse in childhood; Z63.8 Other specified problems related to primary support group
CPT/HCPCS: 36415; 80053; 80305; 80307; 85027; 86780